=== PATIENT | female | born 1985 | race Caucasian/White ===

== ENCOUNTER 2021-01-06 08:28 | Emergency (ER) | payer BC, SELFPAY ==
--- NOTE | ~2021-01-06 | CT_ITS ---
EXAMINATION: CT ABDOMEN AND PELVIS WITH CONTRAST CLINICAL INFORMATION: Abdominal pain at site of umbilical hernia. COMPARISON: Prior abdomen CT from 09/04/2019. TECHNIQUE: Multidetector volumetric images were obtained from the superior aspect of the liver through the pubic symphysis following administration 100 mL of Omnipaque 350 intravenous contrast. Sagittal and coronal reformatted images were obtained on the technologist's workstation. This CT examination was performed using dose optimization techniques as appropriate, variously including the following: *Automated exposure control *Adjustment of mA and/or kV according to patient size (this includes techniques or standardized protocols for targeted exams where dose is matched to indication/reason for exam; i.e. extremities or head) *Use of iterative reconstruction technique DLP: 794 mGy-cm FINDINGS: LOCALIZER IMAGES: Large body habitus. Cholecystectomy clips in the right upper quadrant and IUD in the pelvis. LUNG BASES: Small noncalcified nodules in left lower lobe are unchanged compared to 09/04/2019, consistent with benign nodules. No pulmonary consolidation or pleural effusion at either lung base. LIVER: Chronic hepatomegaly and diffuse hepatic steatosis without focal liver lesion. GALLBLADDER AND BILIARY TREE: Gallbladder is surgically absent.. No intrahepatic or extrahepatic bile duct dilatation. PANCREAS: Normal. No evidence of edema, pancreatic ductal dilatation or mass. SPLEEN: Mildly enlarged spleen measures up to 13.5 cm maximum dimension. ADRENAL GLANDS: Normal. KIDNEYS AND URETERS: The kidneys have normal size and cortical thickness. Small calyceal stone in the left upper pole measures up to 0.3 cm. No renal mass, hydroureteronephrosis or perinephric edema. The ureters are unremarkable. BLADDER: Normal. No calculi or wall thickening. BOWEL AND PERITONEUM: Stomach is unremarkable. No dilated loops of bowel. The appendix is normal. No overt bowel wall thickening or mesenteric fat stranding. No ascites or pneumoperitoneum. ABDOMINAL WALL: The fat-containing hernia located just superior to the umbilicus has a 1.1 cm wide neck. The hernia sac measures approximately 2.8 x 2.3 x 3 cm (2.2 x 2 x 3 cm on 09/04/2019). No herniation of bowel into the umbilical region. Minimal haziness of fat around the hernia sac. No abdominal wall fluid collection. VASCULATURE: Abdominal aorta is normal in caliber and its branches are widely patent. Inferior vena cava is normal. LYMPH NODES: No pathologic sized lymph nodes in the abdomen or pelvis. No inguinal lymphadenopathy. PELVIC VISCERA: Contraceptive device is appropriately positioned within the endometrium. No uterine or adnexal mass. No pelvic free fluid. SKELETAL: Unremarkable. CT/CT abdomen pelvis w con IMPRESSION: * Minimal haziness/inflammation of fat at site of the incarcerated, fat-containing periumbilical hernia. No abdominal wall abscess. There is no herniation of bowel into the abdominal wall. * Chronic hepatomegaly and diffuse hepatic steatosis. * Small stone in the upper pole of the left kidney. No hydronephrosis.
--- NOTE | 2021-01-06 08:59 | ED_ITS ---
HPI - Abdominal Pain General Chief Complaint: Abdominal Pain Stated Complaint: hernia on belly button Time Seen by Provider: 01/06/21 08:36 Source: patient Mode of arrival: ambulatory Limitations: no limitations History of Present Illness HPI narrative: has known umbilical hernia for months, loose stool + flatus, st opped drinking 5 nips of ETOH about a weeks ago drinks due to anxiety MD elicited complaint: abdominal pain Onset (ago): month(s) (but worse in last day) Pain Consistency: constant Location: periumbilical Severity: moderate Quality: cramping Radiation: none Migration to: no migration Exacerbating factors: vomiting and movement Relieving factors: nothing Associated symptoms: nausea and vomiting Related Data Previous Rx's Medication Instructions Recorded chlordiazepoxide HCl See Rx Instructions .ROUTE 01/06/21 .COMPLEX PRN #30 cap famotidine [Pepcid] 20 mg PO DAILY PRN #30 tab 01/06/21 ondansetron 4 mg PO Q8H PRN #20 tab 01/06/21 Allergies Allergy/AdvReac Type Severity Reaction Status Date / Time No Known Allergies Allergy Unknown Unverified 04/05/20 16:16 Environmental Allergy Unknown Uncoded 06/19/15 00:00 Review of Systems Review of Systems Constitutional : No Weight loss, No Fever, No Chills ENT/Mouth : No sore throat, No Rhinorrhea Eyes: No Swelling, No Redness Cardiovascular : No Chest Pain, No SOB, NoEdema Respiratory : No Cough, No Sputum, No Wheezing Gastrointestinal : Positive Nausea, Positive Vomiting, no Diarrhea, positive abdominal Pain, No Hematochezia, No Melena Genitourinary : No Dysuria, No Urinary Frequency, No Hematuria, No Urgency Musculoskeletal : No joint pain, No Myalgias, No Joint Swelling Skin : No Skin Lesions, No rash Neuro : No Weakness, No Numbness, No Dizziness, No Headache Psych : No Anxiety/Panic, No Depression Heme/Lymph: No Bruising, No Lymphadenopathy Endocrine : No Polyuria, No Polydipsia All other systems reviewed and are negative. Physical Exam Vital Signs: Vital Signs: Last Vital Signs Temp 98.8 F 01/06/21 10:00 Pulse 113 H 01/06/21 10:00 Resp 20 01/06/21 10:00 BP 145/85 H 01/06/21 10:00 Pulse Ox 98 01/06/21 10:00 Body Mass Index 31.2 Appearance: Alert. Oriented X3. No acute distress. Anxious Eyes: Pupils equal, round and reactive to light. ENT: Pharynx normal. Neck: Normal inspection. Neck supple. CVS: Normal heart rate and rhythm. Pulses normal. Respiratory: No respiratory distress. Breath sounds normal. Abdomen: Soft and enlarged abdomen, no ascites, ?hepatomegaly, soft reducible hernia Skin: Skin warm and dry. Normal skin color. Normal skin turgor. Extremities: No lower extremity edema. No calf ttp Neuro: Oriented X 3. No motor deficit. No sensory deficit. Course Course Course Narrative: herniated fat not bowel in umbilical hernia it has been there x 1 year no severe pain, no ttp no discoloration, at this time suspect this is combination of fat necrosis and ETOH abuse will send home with medications and referral to surgery Dr. Whaley aware can follow up as outpatient MDM - Abdominal Pain MDM Narrative Medical decision making narrative: 35 yo female s/p lap ari several years ago comes in with abdominal pain n/v did have stool today and flatus has umbilical hernia that is reduceable for months I suspect that her n/v and symptoms might be related to her ETOH abuse, given her symptoms will obtain labs, IVF, IV Toradol/zofran and PO librium, CT scan for obstruction and will be able to evaluate her liver as well, dispo per results and findings. Lab Data Result diagrams: 01/06/21 09:55 01/06/21 09:55 Labs: Lab Results 01/06/21 01/06/21 01/06/21 Range/Units 09:55 09:55 09:55 WBC 10.1 (4.8-10.8) X10*3/uL RBC 2.93 L (4.20-5.50) X10*6/uL Hgb 11.5 L (12.0-16.0) g/dl Hct 34.2 L (37-47) % MCV 116.7 H (80-98) fL MCH 39.2 H (27.0-33.0) pg MCHC 33.6 (31.0-35.0) g/dl RDW 13.7 (11.0-16.0) % Plt Count 289 (160-400) X10*3/uL MPV 9.3 L (9.4-12.3) fL Immature Gran % (Auto) 0.6 H (0.0-0.4) % Neut % (Auto) 82.9 H (45-73) % Lymph % (Auto) 10.4 L (20-40) % [place] % (Auto) 5.3 (2-11) % Eos % (Auto) 0.5 (0-4) % Baso % (Auto) 0.3 (0-2) % Lymph # (Auto) 1.1 L (1.2-4.9) X10*3/uL [place] # (Auto) 0.5 (0.1-1.2) X10*3/uL Eos # (Auto) 0.1 (0.0-0.4) X10*3/uL Baso # (Auto) 0.0 (0.0-0.2) X10*3/uL Abs Immat Gran (auto) 0.06 H (0.00-0.03) X10*3/uL Absolute Neuts (auto) 8.4 H (2.0-8.3) X10*3/uL Absolute Nucleated RBC 0.000 (0.0-0.012) X10*3/uL Nucleated RBC % (auto) 0.0 (0.0-0.2) /100WBC Hold Blue Top SEE NOTE Sodium 141 (135-145) mmol/L Potassium 3.9 (3.3-5.1) mmol/L Chloride 102 (96-108) mmol/L Carbon Dioxide 26 (22-29) mmol/L Anion Gap 17 (12-20) BUN 6 L (9-16) mg/dL Creatinine 0.61 (0.5-1.4) mg/dL Estim Creat Clear Calc 136.1 Estimated GFR > 60 Random Glucose 125 H (60-115) mg/dL Calcium 9.4 (8.4-10.2) mg/dL Magnesium 2.0 (1.6-2.6) mg/dL Total Bilirubin 2.2 H (0.0-1.0) mg/dL Direct Bilirubin 1.2 H (0.0-0.5) mg/dL AST 208 H (5-31) U/L ALT 97 H (0-31) U/L Alkaline Phosphatase 204 H (39-117) U/L Total Protein 7.3 (6.5-8.0) g/dL Albumin 3.8 (3.5-5.0) g/dL Lipase 40 (8-78) U/L Urine Color Urine Appearance Urine pH (5.0-8.0) Ur Specific [place] (1.005-1.025) Urine Protein (NEG-TRACE) MG/DL Urine Glucose (UA) (NEG) MG/DL Urine Ketones (NEG) MG/DL Urine Blood (NEG) Urine Nitrite (NEG) Ur Leukocyte Esterase (NEG) Urine RBC (0) /HPF Urine WBC (0-4) /HPF Ur Squamous Epith Cells /LPF Calcium Oxalate Crystal /LPF Urine Bacteria /LPF Urine Mucus /LPF Urine Test (NEGATIVE) 01/06/21 01/06/21 Range/Units 11:35 11:35 WBC (4.8-10.8) X10*3/uL RBC (4.20-5.50) X10*6/uL Hgb (12.0-16.0) g/dl Hct (37-47) % MCV (80-98) fL MCH (27.0-33.0) pg MCHC (31.0-35.0) g/dl RDW (11.0-16.0) % Plt Count (160-400) X10*3/uL MPV (9.4-12.3) fL Immature Gran % (Auto) (0.0-0.4) % Neut % (Auto) (45-73) % Lymph % (Auto) (20-40) % [place] % (Auto) (2-11) % Eos % (Auto) (0-4) % Baso % (Auto) (0-2) % Lymph # (Auto) (1.2-4.9) X10*3/uL [place] # (Auto) (0.1-1.2) X10*3/uL Eos # (Auto) (0.0-0.4) X10*3/uL Baso # (Auto) (0.0-0.2) X10*3/uL Abs Immat Gran (auto) (0.00-0.03) X10*3/uL Absolute Neuts (auto) (2.0-8.3) X10*3/uL Absolute Nucleated RBC (0.0-0.012) X10*3/uL Nucleated RBC % (auto) (0.0-0.2) /100WBC Hold Blue Top Sodium (135-145) mmol/L Potassium (3.3-5.1) mmol/L Chloride (96-108) mmol/L Carbon Dioxide (22-29) mmol/L Anion Gap (12-20) BUN (9-16) mg/dL Creatinine (0.5-1.4) mg/dL Estim Creat Clear Calc Estimated GFR Random Glucose (60-115) mg/dL Calcium (8.4-10.2) mg/dL Magnesium (1.6-2.6) mg/dL Total Bilirubin (0.0-1.0) mg/dL Direct Bilirubin (0.0-0.5) mg/dL AST (5-31) U/L ALT (0-31) U/L Alkaline Phosphatase (39-117) U/L Total Protein (6.5-8.0) g/dL Albumin (3.5-5.0) g/dL Lipase (8-78) U/L Urine Color YELLOW Urine Appearance CLEAR Urine pH 6.0 (5.0-8.0) Ur Specific [place] <= 1.005 (1.005-1.025) Urine Protein NEG (NEG-TRACE) MG/DL Urine Glucose (UA) NEG (NEG) MG/DL Urine Ketones NEG (NEG) MG/DL Urine Blood TRACE (NEG) Urine Nitrite NEG (NEG) Ur Leukocyte Esterase NEG (NEG) Urine RBC 0-2 (0) /HPF Urine WBC 0 (0-4) /HPF Ur Squamous Epith Cells TRACE /LPF Calcium Oxalate Crystal TRACE /LPF Urine Bacteria NONE /LPF Urine Mucus TRACE /LPF Urine Test NEGATIVE (NEGATIVE) Discharge Plan Discharge Clinical Impression: Abnormal LFTs (liver function tests), Alcohol abuse Hernia, umbilical Qualifiers: Obstruction and gangrene presence: without obstruction or gangrene Qualified Code(s): K42.9 - Umbilical hernia without obstruction or gangrene Patient Disposition: Home, Self-Care Instructions: Umbilical Hernia (ED), Abuse of Alcohol (ED) Additional Instructions: return to ED for any worsening symptoms or concerns FOLLOW UP WITH SURGERY CT SCAN RESULTS * Minimal haziness/inflammation of fat at site of the incarcerated, fat-containing periumbilical hernia. No abdominal wall abscess. There is no herniation of bowel into the abdominal wall. * Chronic hepatomegaly and diffuse hepatic steatosis. * Small stone in the upper pole of the left kidney. No hydronephrosis. Prescriptions: New famotidine [Pepcid] 20 mg tablet 20 mg PO DAILY PRN (Reason: abdominal discomfort) Qty: 30 RF: 0 chlordiazepoxide HCl 25 mg capsule See Rx Instructions .ROUTE .COMPLEX PRN (Reason: alcohol withdrawal) Qty: 30 RF: 0 ondansetron 4 mg tablet,disintegrating 4 mg PO Q8H PRN (Reason: nausea and vomiting) Qty: 20 RF: 0 Referrals: Jose Whaley MD [Physician] - 2 days Stand Alone Forms: Work/School Release FOR[facility]LY [facility] Past Medical History Attestation statement: The following information was validated with the patient. Medical History (Updated 01/06/21 @ 12:44 by Zina Theodore DO) No active medical problems Seasonal allergies Surgical History (Updated 01/06/21 @ 09:16 by Liliya Martins) H/O LEEP S/P laparoscopic cholecystectomy Social History Social History (Updated 01/06/21 @ 09:11 by Zina Theodore DO) Alcohol intake: current Alcohol intake frequency: 3 or more drinks per day Alcohol type: hard liquor Patient Tobacco Use Status: Never used Tobacco Use of substances other than those prescribed or required for medical reasons: No Advance Directives: Yes Advance Directives Information Provided: Yes Advance Directives on File: No Patient : No
[2021-01-06 09:12] VITALS: BP 158/92; PULSE 125; RESP 18; TEMP 37.1; O2SAT 100; BMI 31.2
[2021-01-06] MEDS: chlordiazePOXIDE HCl 25 MG CAPSULE PO (09:42)
[2021-01-06] MEDS: ondansetron HCL 4 MG/2 ML VIAL IVPUSH (09:55)
[2021-01-06] MEDS: Ketorolac Tromethamine 30 MG/ML VIAL IVPUSH (09:56)
[2021-01-06 10:00] VITALS: BP 145/85; PULSE 113; RESP 20; TEMP 37.1; O2SAT 98
[2021-01-06] MEDS: 0.9 % Sodium Chloride 1,000 ML 999 ML IVCONT (10:04)
[2021-01-06 10:05] LABS: MANUAL DIFF FLAG NO
[2021-01-06 10:06] LABS: Basophils Percent Auto 0.3 % (0-2); Eosinophils Absolute Auto 0.1 X10*3/uL (0.0-0.4); Eosinophils Percent Auto 0.5 % (0-4); Hematocrit 34.2 % (37-47); Hemoglobin 11.5 g/dl (12.0-16.0); Imm Gran Abs Auto 0.06 X10*3/uL (0.00-0.03); Imm Gran Pct Auto 0.6 % (0.0-0.4); Lymphocytes Absolute Auto 1.1 X10*3/uL (1.2-4.9); Lymphocytes Percent Auto 10.4 % (20-40); Mean Corpuscular HGB Conc 33.6 g/dl (31.0-35.0); Mean Corpuscular Hemoglobin 39.2 pg (27.0-33.0); Mean Platelet Volume 9.3 fL (9.4-12.3); Monocytes Absolute Auto 0.5 X10*3/uL (0.1-1.2); Monocytes Percent Auto 5.3 % (2-11); Neutrophils Absolute Auto 8.4 X10*3/uL (2.0-8.3); Neutrophils Percent Auto 82.9 % (45-73); Platelet Count 289 X10*3/uL (160-400); Red Blood Count 2.93 X10*6/uL (4.20-5.50); Red Cell Distribution Width 13.7 % (11.0-16.0); White Blood Count 10.1 X10*3/uL (4.8-10.8)
[2021-01-06 10:07] LABS: Mean Corpuscular Volume 116.7 fL (80-98)
--- NOTE | 2021-01-06 10:16 | PC.NURSE ---
Pt alert oriented, LSCTA, BS active. Pt reports abd pain with movement. She reports having developed a hernia approximately 1yr ago. The pt is tearful and anxious stating she just wants to find out why she is have the pain. Verbal reassurance given. Pt appears in no distress at this time. IV established, labs obtained, fluids hung, meds given as documented. Pt awaiting CT scan.
[2021-01-06 10:41] LABS: Alanine Aminotransferase 97 U/L (0-31); Albumin Level 3.8 g/dL (3.5-5.0); Alkaline Phosphatase 204 U/L (39-117); Anion Gap 17 (12-20); Aspartate Amino Transferase 208 U/L (5-31); Bilirubin Direct 1.2 mg/dL (0.0-0.5); Bilirubin Total 2.2 mg/dL (0.0-1.0); Blood Urea Nitrogen 6 mg/dL (9-16); Calcium 9.4 mg/dL (8.4-10.2); Carbon Dioxide 26 mmol/L (22-29); Chloride 102 mmol/L (96-108); Creatinine Clr Calc Pharmacy 136.1; Estimated Glomerular Filt Rate > 60; Glucose Random 125 mg/dL (60-115); Lipase 40 U/L (8-78); Potassium 3.9 mmol/L (3.3-5.1); Sodium 141 mmol/L (135-145); Total Protein 7.3 g/dL (6.5-8.0)
[2021-01-06 11:43] LABS: Glucose Urine UA NEG (NEG); Leukocyte Esterase Urine NEG (NEG); Nitrite Urine NEG (NEG); Specific Gravity - Urine <= 1.005 (1.005-1.025); Urine Blood TRACE (NEG); Urine Ketones NEG (NEG); Urine Protein NEG (NEG-TRACE)
[2021-01-06 11:45] LABS: Appearance Urine CLEAR; Color Urine YELLOW; Urine Pregnancy NEGATIVE (NEGATIVE)
[2021-01-06 11:46] LABS: UPreg QC Valid YES
[2021-01-06 11:56] LABS: Calcium Oxalate Crystals Urine TRACE /LPF; Mucus Urine TRACE /LPF; RBC Urine 0-2 /HPF (0); Squamous Epithelial Cell Urine TRACE /LPF; WBC Urine 0 /HPF (0-4)
[2021-01-06] MEDS: iohexoL 350 MG/ML 100 ML INFUS..BTL IV (12:20)
[2021-01-06 13:24] VITALS: BP 130/84; PULSE 97; RESP 18; O2SAT 98
== END 2021-01-06 13:32 | disposition home or self-care (01) ==
PROVIDERS: Emergency Provider Emergency Medicine
DX: R79.89 Other specified abnormal findings of blood chemistry (principal); F10.10 Alcohol abuse, uncomplicated; K42.9 Umbilical hernia without obstruction or gangrene; Z90.49 Acquired absence of other specified parts of digestive tract
CPT/HCPCS: 36415; 74177; 80048; 80076; 81001; 81025; 83690; 83735; 85025; 96361; 96374; 96375; 99284; J1885; J2405; Q9967

== ENCOUNTER → 2021-01-07 10:48 | Outpatient (BNVA) | payer BC, SELFPAY | PROVIDERS: Visit Provider Surgery ==

== ENCOUNTER 2021-01-15 08:13 | Day surgery (SDC) | payer BC, SELFPAY ==
--- NOTE | 2021-01-14 11:10 | HO.ANESPROP2 ---
Documented by User: Courtney Renterianey 01/14/21 11:15 HPI - Anesthesia Eval Consult details Narrative: 35yo F for Hernia Repair Umbilical +ETOH (5 nips daily per ER note), LFTs elevated at ER - Repeat DOS and check INR Urine HCG negative in ER 01/06/21 PMFSH Active Problems Active Problems: All Active Problems (Updated 01/07/21 @ 11:13 by Fernando Gomes MD) Supraumbilical hernia (Acute) Past Medical History Medical History Abnormal LFTs (liver function tests) Alcohol abuse No active medical problems Seasonal allergies Supraumbilical hernia Family History Family History Other Bone cancer Non-Hodgkin lymphoma Skin cancer Surgical History Surgical History H/O LEEP S/P laparoscopic cholecystectomy Social History Social History Alcohol intake: current Alcohol intake frequency: 3 or more drinks per day Alcohol type: hard liquor Patient Tobacco Use Status: Never used Tobacco Use of substances other than those prescribed or required for medical reasons: No Have you been hit, kicked, punched, or otherwise hurt by someone within the past year? If so, by whom?: No Are you DNR?: No Advance Directives: No Advance Directives Information Provided: No Recently lost weight without trying: No Patient : No Meds Allergies Allergy/AdvReac Type Severity Reaction Status Date / Time No Known Allergies Allergy Unknown Verified 01/15/21 06:55 Environmental Allergy Mild Unknown Uncoded 01/15/21 06:55 Exam Exam Date and Time: January 14, 2021 1110 Pertinent Lab Results Pertinent Lab Results: Laboratory Tests 01/06/21 01/06/21 01/06/21 09:55 09:55 11:35 WBC 10.1 Hgb 11.5 L Hct 34.2 L Plt Count 289 Sodium 141 Potassium 3.9 Chloride 102 Carbon Dioxide 26 BUN 6 L Creatinine 0.61 Calcium 9.4 Magnesium 2.0 Total Bilirubin 2.2 H Direct Bilirubin 1.2 H AST 208 H ALT 97 H Alkaline Phosphatase 204 H Total Protein 7.3 Albumin 3.8 Lipase 40 Urine Test NEGATIVE Assessment and Plan Assessment Anesthesia Assessment: Chart Reviewed Documented by User: Fariba Hobbs 01/15/21 09:02 PMFSH Past Medical History Medical History Abnormal LFTs (liver function tests) Alcohol abuse No active medical problems Seasonal allergies Supraumbilical hernia Family History Family History Other Bone cancer Non-Hodgkin lymphoma Skin cancer Surgical History Surgical History H/O LEEP S/P laparoscopic cholecystectomy Social History Social History Alcohol intake: current Alcohol intake frequency: 3 or more drinks per day Alcohol type: hard liquor Patient Tobacco Use Status: Never used Tobacco Use of substances other than those prescribed or required for medical reasons: No Have you been hit, kicked, punched, or otherwise hurt by someone within the past year? If so, by whom?: No Are you DNR?: No Advance Directives: No Advance Directives Information Provided: No Recently lost weight without trying: No Patient : No Meds Allergies Allergy/AdvReac Type Severity Reaction Status Date / Time No Known Allergies Allergy Unknown Verified 01/15/21 06:55 Environmental Allergy Mild Unknown Uncoded 01/15/21 06:55 Exam Airway Mallampati Class: II TM Dist: >3cm Neck ROM: Full Assessment and Plan Assessment Anesthesia Assessment: Anesthesia Plan Discussed and Chart Reviewed Final Anesthetic Review NPO: Yes ASA Class: II Final Preanesthetic Review: No Changes in Pt Med Stat, Meds/Allgs Chart Reviewed, Consent Obtained/Reviewed and Anes Risks/Benef Reviewed Patient Risk: Low Procedure Risk: Low Assessment/Block/Sedation in SS: Assess/Block/Sedation-SS Anesthetic Plan Anesthetic Plan: GA Disposition: Standard PACU
[2021-01-15] VITALS (11 sets, daily range): BP systolic 109–132; BP diastolic 72–85; PULSE 91–110; RESP 16–18; TEMP 36.2–37.1; O2SAT 92–98; BMI 31.6
--- NOTE | 2021-01-15 08:09 | PC.NURSE ---
PER ANESTHESIA DR BATRES NO NEW LABS NEEDED ONLY URINE FOR PREGNACY
--- NOTE | 2021-01-15 08:10 | MHC.SHP ---
Pre-Procedural Eval Section A Date of Service: 01/15/21 Section B Chief Complaint: Supraumbilical hernia Allergies: Allergies Allergy/AdvReac Type Severity Reaction Status Date / Time No Known Allergies Allergy Unknown Verified 01/15/21 06:55 Environmental Allergy Mild Unknown Uncoded 01/15/21 06:55 Plan I have reviewed the history and physical and performed a pertinent physical examination on my patient. No changes have occurred unless specified.
[2021-01-15 08:30] LABS: UPreg QC Valid YES; Urine Pregnancy NEGATIVE (NEGATIVE)
[2021-01-15] MEDS: Lactated Ringers 1,000 ML 100 ML IVCONT (08:32)
--- NOTE | 2021-01-15 09:29 | W.PM.OPN ---
Operative Note Operative Note Date of Service: 01/15/21 Narrative: Preop diagnosis: supraumbilical hernia Postop diagnosis: Supraumbilical hernia Procedure: Repair of supraumbilical hernia with Ventralex mesh Surgeon: Fernando Gomes MD No emergency room physician assistant The patient is a 35 year female referred to me because of a supraumbilical hernia. She had a palpable mass, reducible, more pronounced with Valsalva maneuvers on the area above the umbilicus. Review of her CT scan showed a supra umbilical hernia containing fat. She understood the technique of repair with mesh. She was aware of the risks, benefits, and alternatives . She was brought to the operating room and placed supine Onthe table under general anesthesia via laryngeal mask airway. The abdomen was prepped and draped in the usual sterile fashion. A surgical time-out was done. The patient received cefazolin 2 g IV preoperatively. I made a short supraumbilical incision longitudinally using a blade 15. This wascarried down through the full-thickness of skin and subcutaneous fat using electrocautery. I continue to dissect down the subcutaneous layer until I was able to visualize hernia. I sharply dissected the hernia with the sac using Metzenbaum scissors and electrocautery off of the rest of subcutaneous layer until was able to clearly define the fascia. I divided the fibrous attachments of the sac to the fascial edge with electrocautery and Metzenbaum scissors. This was done circumferentially until was able to completely reduce the hernia through the defect. The hernia contained omental Fat without bowel loops..The defect measured about 1.3 cm in diameter. I therefore chose a small-sized Ventralex mesh. I positioned this mesh flat under the fascial defect and secured this to the fascial edge with Prolene to sutures using the Prolene straps. Both Prolene straps were then trimmed. I closed the fascia with [id number] Maxon 1 stitch. I recreated. I then reapposed the subcutaneous layer with Dexon 3-0 interrupted sutures. Skin closure was achieved with Dexon 4-0 subcuticular running stitch. The area was infiltrated with Marcaine 0.5% for postop analgesia. Steri-Strips and dressings were applied. The procedure was then completed The patient tolerated procedure well. There were no complications noted. Initial and final counts of sponges and instruments were correct. Estimated blood loss was about 2 cc . The patient was then extubated without difficulty and transferred to the recovery room with stable vital signs.
[2021-01-15] MEDS: Acetaminophen 325 MG TABLET 650 MG PO (09:54)
[2021-01-15] MEDS: oxyCODONE HCl Immed Release 5 MG TABLET PO (09:55)
[2021-01-15] MEDS: fentaNYL citrate/PF 100 MCG/2 ML VIAL 50 MCG IVPUSH (10:18)
== END 2021-01-15 11:17 | disposition home or self-care (01) ==
LOC: HO.SSS 08:15
PROVIDERS: Anesthesiology; Visit Provider Surgery
PROC: (CPT 49560; principal; 2021-01-15 10:10)
DX: K43.9 Ventral hernia without obstruction or gangrene (principal); F10.10 Alcohol abuse, uncomplicated; R74.8 Abnormal levels of other serum enzymes; J30.2 Other seasonal allergic rhinitis; Z79.899 Other long term (current) drug therapy; Z90.49 Acquired absence of other specified parts of digestive tract
CPT/HCPCS: 49560; 81025; C1781; J0690; J1100; J1885; J2250; J2405; J3010

== ENCOUNTER → 2021-01-31 10:49 | Outpatient (BNVA) | payer BC, SELFPAY | PROVIDERS: PCP Internal Medicine; Visit Provider Surgery ==

== ENCOUNTER → 2022-03-07 10:30 | Outpatient (BNVA) | payer SELFPAY | PROVIDERS: PCP Internal Medicine; Visit Provider Internal Medicine | DX: R76.11 Nonspecific reaction to tuberculin skin test without active tuberculosis (principal) ==

== ENCOUNTER 2022-08-13 00:40 | Emergency (ER) | payer BC, SELFPAY ==
[2022-08-13 00:48] VITALS: BP 154/89; PULSE 127; RESP 20; TEMP 36.7; O2SAT 98; BMI 28.3
[2022-08-13 01:09] LABS: MANUAL DIFF FLAG NO
[2022-08-13 01:12] LABS: Basophils Percent Auto 0.4 % (0-2); Eosinophils Absolute Auto 0.3 X10*3/uL (0.0-0.4); Eosinophils Percent Auto 2.9 % (0-4); Hematocrit 35.5 % (37.0-47.0); Hemoglobin 11.6 g/dl (12.0-16.0); Imm Gran Abs Auto 0.04 X10*3/uL (0.00-0.03); Imm Gran Pct Auto 0.4 % (0.0-0.4); Lymphocytes Absolute Auto 1.7 X10*3/uL (1.2-4.9); Lymphocytes Percent Auto 18.8 % (20-40); Mean Corpuscular HGB Conc 32.7 g/dl (31.0-35.0); Mean Corpuscular Hemoglobin 35.5 pg (27.0-33.0); Mean Corpuscular Volume 108.6 fL (80.0-98.0); Mean Platelet Volume 9.9 fL (9.4-12.3); Monocytes Absolute Auto 0.6 X10*3/uL (0.1-1.2); Monocytes Percent Auto 6.3 % (2-11); Neutrophils Absolute Auto 6.5 x10*3/uL (2.0-8.3); Neutrophils Percent Auto 71.2 % (45-73); Platelet Count 202 X10*3/uL (160-400); Red Blood Count 3.27 X10*6/uL (4.20-5.50); Red Cell Distribution Width 14.6 % (11.0-16.0); White Blood Count 9.1 X10*3/uL (4.8-10.8)
[2022-08-13 01:31] LABS: Anion Gap 14 (12-20); Blood Urea Nitrogen 8 mg/dL (9-16); Calcium 9.4 mg/dL (8.4-10.2); Carbon Dioxide 26 mmol/L (22-29); Chloride 107 mmol/L (96-108); Creatinine Clr Calc Pharmacy 119.9; Estimated Glomerular Filt Rate > 60; Glucose Random 129 mg/dL (60-115); Lipase 44 U/L (8-78); Potassium 3.4 mmol/L (3.3-5.1); Sodium 144 mmol/L (135-145)
[2022-08-13 01:50] LABS: Influenza A PCR NEGATIVE (Negative); Influenza B PCR NEGATIVE (Negative); Resp Syncy Virus RNA Qual PCR NEGATIVE (Negative); SARS COV2 PCR INHOUSE NEGATIVE (Negative)
--- OUTSIDE RECORDS SUMMARY | 2022-08-13 02:25 | XMS_ITS | Continuity of Care Document ---
:1985 Author Organization [facility] Address [address] [place] [address]- Care Team Providers Name Role Phone Josey PIERRE, Judith Primary Care Physician [place] [facility] [place] [facility] [address], [place] [address] Attending Physician: Dong Britton DO
--- OUTSIDE RECORDS SUMMARY | 2022-08-13 02:25 | XMS_ITS | Continuity of Care Document ---
:1985 Author Organization [facility] Address [address] [place] [address]- Care Team Providers Name Role Phone Josey PIERRE, Judith Primary Care Physician [place] [facility] [place]21 [facility] [address] [place] [address]- Attending Physician: Joselin Fernandez Admitting Physician: Joselin Fernandez Referring Physician: Joselin Fernandez
[2022-08-13 02:51] VITALS: BP 160/99; PULSE 104; RESP 17; TEMP 36.8; O2SAT 96
[2022-08-13 03:36] LABS: Appearance Urine Cloudy; Color Urine Dark Yellow; Glucose Urine UA Negative (Negative); Leukocyte Esterase Urine Trace (Negative); Nitrite Urine Negative (Negative); UMIC TRIGGER UACC YES; Urine Blood Negative (Negative); Urine Ketones Trace mg/dL (Negative); Urine Protein Trace mg/dL (Neg-Trace)
[2022-08-13 03:38] LABS: UPreg QC Valid YES; Urine Pregnancy NEGATIVE (NEGATIVE)
--- NOTE | 2022-08-13 03:45 | ED.ABDPAIN ---
HPI - Abdominal Pain General Chief Complaint: Abdominal Pain Stated Complaint: Abd pain Time Seen by Provider: 08/13/22 03:45 Source: patient Mode of arrival: ambulatory Limitations: no limitations History of Present Illness HPI narrative: Patient is status post cholecystectomy comes in for abdominal bloating for last 4 months also complaining of tingling sensation in hands and feet for last few days patient drinks alcohol almost every day also feels constipated no fever no chills no vomiting or diarrhea Related Data Previous Rx's Medication Instructions Recorded dicyclomine 20 mg tablet 20 mg PO QID PRN abdominal pain 08/13/22 #20 tabs folic acid 1 mg tablet 1 mg PO DAILY #90 tabs 08/13/22 thiamine HCl (vitamin B1) 50 mg 50 mg PO DAILY #90 tabs 08/13/22 tablet Allergies Allergy/AdvReac Type Severity Reaction Status Date / Time Environmental Allergy Mild Unknown Uncoded 09/30/21 09:35 Review of Systems Review of Systems Yes all other systems are reviewed and are negative PMFSH Past Medical History Medical History (Updated 08/13/22 @ 04:45 by Vishnu Liu MD) Abnormal LFTs (liver function tests) Alcohol abuse Elevated blood pressure reading without diagnosis of hypertension SERAFIN (generalized anxiety disorder) Macrocytic anemia Obese Seasonal allergies Supraumbilical hernia Surgical History H/O LEEP History of hernia surgery S/P laparoscopic cholecystectomy Family History Family History Family/Other Mental health disorder Father Osteomyelitis Anemia Myocardial infarction Mother Schizophrenia Brother Autistic disorder Other Bone cancer Non-Hodgkin lymphoma Skin cancer Social History Social History (Updated 09/30/21 @ 09:42 by Roxane Merritt MD) Housing: House Alcohol intake: current Alcohol intake frequency: a few times a week Alcohol type: wine Patient Tobacco Use Status: Former Tobacco user Tobacco use type: Cigarette Smoked in Last 30 Days: No e-Cigarette/Vaping Use: Never Used Second Hand Smoke Exposure: No Use of substances other than those prescribed or required for medical reasons: No Advance Directives: No Advance Directives Information Provided: Yes Patient : No service: No Current occupational status: employed Current occupational exposures/hazards: No Physical Exam ED Vital Signs: Vital Signs - 24 hr 08/13/22 00:48 08/13/22 02:51 Temperature 98.1 F 98.3 F Pulse Rate 127 H 104 H Respiratory Rate 20 17 Blood Pressure 154/89 H 160/99 H Pulse Oximetry 98 96 Oxygen Delivery Method Room Air Room Air BMI result Body Mass Index 28.3 Appearance: Alert. Oriented X3. No acute distress. Eyes: No pallor or icterus ENT: Pharynx normal. Oral Mucosa moist Neck: Normal inspection. Neck supple. CVS: Normal heart rate and rhythm. Pulses normal. Respiratory: No respiratory distress. Equal air entry bilateral, no wheezing/rales/rhonchi Abdomen: Soft diffuse tenderness no rebound tenderness or guarding. Bowel sounds are present, no mass palpable, no CVA tenderness Skin: Skin warm and dry. Normal skin color. Normal skin turgor. Extremities: No lower extremity edema. No calf tenderness Neuro: Oriented X 3. No motor deficit. No sensory deficit.No cerebellar signs , cranial nerves II-XII intact Medical Decision Making Medical Decision Making MDM Narrative: Patient likely with IBS with given dicyclomine. Labs are stable. Patient tingling sensation in the hands and feet likely from alcoholic peripheral neuropathy patient advised to stop drinking alcohol will give her thiamine and folic acid. Vitamin B12 and folic acid level was normal Lab Data [facility] Lab Attestation statement: I reviewed the patient's lab results. 08/13/22 01:01 08/13/22 01:01 Labs: Lab Results 08/13/22 08/13/22 08/13/22 Range/Units 01:01 01:01 01:01 WBC 9.1 (4.8-10.8) X10*3/uL RBC 3.27 L (4.20-5.50) X10*6/uL Hgb 11.6 L (12.0-16.0) g/dl Hct 35.5 L (37.0-47.0) % MCV 108.6 H (80.0-98.0) fL MCH 35.5 H (27.0-33.0) pg MCHC 32.7 (31.0-35.0) g/dl RDW 14.6 (11.0-16.0) % Plt Count 202 (160-400) X10*3/uL MPV 9.9 (9.4-12.3) fL Immature Gran % (Auto) 0.4 (0.0-0.4) % Neut % (Auto) 71.2 (45-73) % Lymph % (Auto) 18.8 L (20-40) % [place] % (Auto) 6.3 (2-11) % Eos % (Auto) 2.9 (0-4) % Baso % (Auto) 0.4 (0-2) % Lymph # (Auto) 1.7 (1.2-4.9) X10*3/uL [place] # (Auto) 0.6 (0.1-1.2) X10*3/uL Eos # (Auto) 0.3 (0.0-0.4) X10*3/uL Baso # (Auto) 0.0 (0.0-0.2) X10*3/uL Abs Immat Gran (auto) 0.04 H (0.00-0.03) X10*3/uL Absolute Neuts (auto) 6.5 (2.0-8.3) x10*3/uL Absolute Nucleated RBC 0.000 (0.0-0.012) X10*3/uL Nucleated RBC % (auto) 0.0 (0.0-0.2) /100WBC Sodium 144 (135-145) mmol/L Potassium 3.4 (3.3-5.1) mmol/L Chloride 107 (96-108) mmol/L Carbon Dioxide 26 (22-29) mmol/L Anion Gap 14 (12-20) BUN 8 L (9-16) mg/dL Creatinine 0.63 (0.5-1.4) mg/dL Estim Creat Clear Calc 119.9 Estimated GFR > 60 Random Glucose 129 H (60-115) mg/dL Calcium 9.4 (8.4-10.2) mg/dL Magnesium 1.8 (1.6-2.6) mg/dL Lipase 44 (8-78) U/L Vitamin B12 (200-900) pg/mL Folate (> or = 4.0) ng/mL Urine Color Urine Appearance Urine pH (5.0-9.0) Ur Specific [place] (1.005-1.025) Urine Protein (Neg-Trace) mg/dL Urine Glucose (UA) (Negative) mg/dL Urine Ketones (Negative) mg/dL Urine Blood (Negative) Urine Nitrite (Negative) Ur Leukocyte Esterase (Negative) Urine RBC (0-2) /HPF Urine WBC (0-5) /HPF Ur Squamous Epith Cells (0-2) /HPF Calcium Oxalate Crystal Urine Bacteria (None Seen) Hyaline Casts (0-2) /LPF Urine Test (NEGATIVE) Influenza Type A (PCR) NEGATIVE (Negative) Influenza Type B (PCR) NEGATIVE (Negative) RSV RNA Qual (PCR) NEGATIVE (Negative) SARS-CoV-2 RNA (RT-PCR) NEGATIVE (Negative) 08/13/22 08/13/22 08/13/22 Range/Units 01:01 02:57 02:57 WBC (4.8-10.8) X10*3/uL RBC (4.20-5.50) X10*6/uL Hgb (12.0-16.0) g/dl Hct (37.0-47.0) % MCV (80.0-98.0) fL MCH (27.0-33.0) pg MCHC (31.0-35.0) g/dl RDW (11.0-16.0) % Plt Count (160-400) X10*3/uL MPV (9.4-12.3) fL Immature Gran % (Auto) (0.0-0.4) % Neut % (Auto) (45-73) % Lymph % (Auto) (20-40) % [place] % (Auto) (2-11) % Eos % (Auto) (0-4) % Baso % (Auto) (0-2) % Lymph # (Auto) (1.2-4.9) X10*3/uL [place] # (Auto) (0.1-1.2) X10*3/uL Eos # (Auto) (0.0-0.4) X10*3/uL Baso # (Auto) (0.0-0.2) X10*3/uL Abs Immat Gran (auto) (0.00-0.03) X10*3/uL Absolute Neuts (auto) (2.0-8.3) x10*3/uL Absolute Nucleated RBC (0.0-0.012) X10*3/uL Nucleated RBC % (auto) (0.0-0.2) /100WBC Sodium (135-145) mmol/L Potassium (3.3-5.1) mmol/L Chloride (96-108) mmol/L Carbon Dioxide (22-29) mmol/L Anion Gap (12-20) BUN (9-16) mg/dL Creatinine (0.5-1.4) mg/dL Estim Creat Clear Calc Estimated GFR Random Glucose (60-115) mg/dL Calcium (8.4-10.2) mg/dL Magnesium (1.6-2.6) mg/dL Lipase (8-78) U/L Vitamin B12 624 (200-900) pg/mL Folate 5.2 (> or = 4.0) ng/mL Urine Color Dark Yellow Urine Appearance Cloudy Urine pH 6.0 (5.0-9.0) Ur Specific [place] 1.020 (1.005-1.025) Urine Protein Trace (Neg-Trace) mg/dL Urine Glucose (UA) Negative (Negative) mg/dL Urine Ketones Trace (Negative) mg/dL Urine Blood Negative (Negative) Urine Nitrite Negative (Negative) Ur Leukocyte Esterase Trace H (Negative) Urine RBC 3-5 H (0-2) /HPF Urine WBC 0-5 (0-5) /HPF Ur Squamous Epith Cells 0-2 (0-2) /HPF Calcium Oxalate Crystal Present Urine Bacteria None Seen (None Seen) Hyaline Casts 0-2 (0-2) /LPF Urine Test NEGATIVE (NEGATIVE) Influenza Type A (PCR) (Negative) Influenza Type B (PCR) (Negative) RSV RNA Qual (PCR) (Negative) SARS-CoV-2 RNA (RT-PCR) (Negative) Medications Administered Discontinued Medications Generic Name Dose Route Start Last Admin Trade Name Freq PRN Reason Stop Dose Admin Dicyclomine HCl 20 mg 08/13/22 03:51 08/13/22 04:17 Dicyclomine Hcl 10 Mg Capsule PO 08/13/22 03:52 20 mg ONCE ONE Administration Thiamine HCl 50 mg 08/13/22 03:51 08/13/22 04:17 Thiamine Hcl 100 Mg Tablet PO 08/13/22 03:52 50 mg ONCE ONE Administration Discharge Plan Discharge Clinical Impression: Alcoholic peripheral neuropathy, Irritable bowel syndrome Patient Disposition: Home, Self-Care Instructions: Irritable Bowel Syndrome (ED), Peripheral Neuropathy (ED) Additional Instructions: Take thiamine and folic acid daily Stop drinking alcohol Bentyl for abdominal cramping Follow with PCP Prescriptions: New dicyclomine 20 mg tablet 20 mg PO QID PRN (Reason: abdominal pain) Qty: 20 0RF thiamine HCl (vitamin B1) 50 mg tablet 50 mg PO DAILY Qty: 90 0RF folic acid 1 mg tablet 1 mg PO DAILY Qty: 90 0RF Stand Alone Forms: Work/School Release Interventions: ED Discharge Assessment Last Done: 08/13/22 05:03 Discharge Date/Time: 08/13/22 05:03
[2022-08-13 04:05] LABS: Magnesium 1.8 mg/dL (1.6-2.6)
[2022-08-13 04:07] LABS: Bacteria Urine None Seen (None Seen); Calcium Oxalate Crystals Urine Present; Hyaline Casts Urine 0-2 /LPF (0-2); Squamous Epithelial Cell Urine 0-2 /HPF (0-2); WBC Urine 0-5 /HPF (0-5)
[2022-08-13] MEDS: Thiamine HCL 100 MG TABLET 50 MG PO (04:17)
[2022-08-13] MEDS: Dicyclomine HCl 10 MG CAPSULE 20 MG PO (04:17)
--- NOTE | 2022-08-13 05:04 | PC.NURSE ---
discharge instructions given/explained, ambulates safely/independently, alert and oriented, all questions answered, no apparent distress
[2022-08-13 05:05] LABS: Folate 5.2 ng/mL (> or = 4.0); Vitamin B12 624 pg/mL (200-900)
== END 2022-08-13 05:03 | disposition home or self-care (01) ==
PROVIDERS: Emergency Provider Internal Medicine
DX: G62.1 Alcoholic polyneuropathy (principal); F10.188 Alcohol abuse with other alcohol-induced disorder; K58.9 Irritable bowel syndrome, unspecified; R10.9 Unspecified abdominal pain; Z20.822 Contact with and (suspected) exposure to COVID-19; Z20.828 Contact with and (suspected) exposure to other viral communicable diseases; Z87.891 Personal history of nicotine dependence
CPT/HCPCS: 0241U; 36415; 80048; 81001; 81025; 82607; 82746; 83690; 83735; 85025; 99283; 99284

== ENCOUNTER 2023-11-01 07:05 | Inpatient (IN) | payer MEDICAID, SELFPAY ==
[2023-11-01] VITALS (15 sets, daily range): BP systolic 116–142; BP diastolic 61–90; PULSE 84–116; RESP 16–20; TEMP 36–37.4; O2SAT 85–98; BMI 24.1
--- NOTE | ~2023-11-01 | CT_ITS ---
EXAMINATION: CT CHEST WITH CONTRAST CLINICAL INFORMATION: Hypoxia. Question aspiration. COMPARISON: Chest x-ray February 2019 TECHNIQUE: Multidetector volumetric CT imaging of the chest was obtained after the administration of 100 mL of Omnipaque 350 intravenous contrast without immediate adverse reactions. Axial MIP volume rendering provided. Sagittal and coronal reformatted images were obtained. This CT examination was performed using dose optimization techniques as appropriate, variously including the following: *Automated exposure control *Adjustment of mA and/or kV according to patient size (this includes techniques or standardized protocols for targeted exams where dose is matched to indication/reason for exam; i.e. extremities or head) *Use of iterative reconstruction technique DLP: 243 mGy-cm FINDINGS: LUNGS: Low lung volumes. Slightly elevated right hemidiaphragm. Atelectasis/consolidation in the right lower lobe. There is subsegmental atelectasis in the left lower lobe. Lungs otherwise clear. MEDIASTINUM: The mediastinum is normal. PLEURA: There is no pleural effusion. No pleural mass or thickening. AXILLA: No lymphadenopathy. UPPER ABDOMEN: See abdominal and pelvic CT report from the same day OSSEOUS STRUCTURES: Unremarkable. CT/CT chest w IV con IMPRESSION: Low lung volumes. Atelectasis/consolidation in the right lower lobe and subsegmental atelectasis in the left lower lobe. Fleischner guidelines were followed.
--- NOTE | ~2023-11-01 | CT_ITS ---
EXAMINATION: CT GI bleed abdomen and pelvis with and without IV contrast CLINICAL INFORMATION: Melanoma COMPARISON: Previous CT December 2020 TECHNIQUE: Axial images through the abdomen and pelvis with and without 100 mL Omnipaque 350 IV contrast. No oral contrast. Portal phase and delayed two-minute imaging postcontrast performed. This CT examination was performed using dose optimization techniques as appropriate, variously including the following: *Automated exposure control *Adjustment of mA and/or kV according to patient size (this includes techniques or standardized protocols for targeted exams where dose is matched to indication/reason for exam; i.e. extremities or head) *Use of iterative reconstruction technique DLP 204 9 mg/cm. FINDINGS: The liver is enlarged. The liver is markedly heterogeneous in attenuation. While this may represent heterogeneous fatty infiltration it is difficult to exclude a focal liver lesion. The gallbladder is been removed. There is no biliary duct dilatation. The portal and hepatic veins are patent. Normal pancreas. Enlarged spleen. Normal adrenal glands. Small cyst in the upper pole of the right kidney. No imaging follow-up recommended. Irregularly shaped stone versus 2 adjacent stones in the left UPJ region measuring 2 x 5 mm. There is no appreciable left hydronephrosis. Normal bladder. IUD in the uterus in satisfactory position. No adnexal mass seen. Large amount of ascites. Mild wall thickening of the proximal colon are suitable for colitis. This may be secondary to liver disease. The small bowel is normal. The stomach is contracted. There may be a fold thickening of the stomach. No evidence of active GI bleeding is seen. The appendix not definitely seen. There are small retroperitoneal lymph nodes. No enlarged lymph nodes. There are upper abdominal varices. The main and right left portal veins and splenic vein and hepatic veins are patent. The aorta is normal in caliber. No hernia. Review of bone windows is normal. CT/CT gi bleed abd pel wo/w IVcon IMPRESSION: No evidence of active GI bleeding seen. Colitis of the proximal colon. This may be secondary to liver disease. There also may be diffuse wall thickening of the stomach/gastritis. Enlarged very heterogeneous liver. While this may represent atypical appearing fatty infiltration, focal liver lesion cannot be excluded and further evaluation with liver MRI recommended. Splenomegaly, varices and large amount of ascites. 2 x 5 mm left UPJ stone. No significant hydronephrosis. Unremarkable examination.
--- NOTE | ~2023-11-01 | CT_ITS ---
EXAMINATION: CT HEAD WITHOUT CONTRAST CLINICAL INFORMATION: Facial weakness. COMPARISON: None available. TECHNIQUE: Contiguous axial imaging was performed from the skull base to vertex without intravenous administration of contrast. This CT examination was performed using dose optimization techniques as appropriate, variously including the following: *Automated exposure control *Adjustment of mA and/or kV according to patient size (this includes techniques or standardized protocols for targeted exams where dose is matched to indication/reason for exam; i.e. extremities or head) *Use of iterative reconstruction technique DLP: 550 mGy-cm FINDINGS: There is a mixed density extra-axial hemorrhage along the right frontal, parietal, and temporal convexities consistent with acute subdural hemorrhage. The hemorrhage measures up to 1.5 cm in thickness in the parietal region. There is mass effect on the underlying brain parenchyma. There is 0.6 cm of right to left midline shift. There is compression of the right lateral ventricle. No hydrocephalus. No evidence of acute infarction. The orbits are symmetric and within normal limits. The calvarium is intact. The mastoid air cells are clear. There is a mucosal retention cysts within the posterior aspect of the left maxillary sinus. Remaining paranasal sinuses are well aerated. CT/CT head/brain wo IV con IMPRESSION: There is a mixed (predominantly hyperdense) density extra-axial hemorrhage along the right frontal, parietal, and temporal convexities consistent with acute subdural hemorrhage. The hemorrhage measures up to 1.5 cm in thickness in the parietal region. There is mass effect on the underlying brain parenchyma. There is 0.6 cm of right to left midline shift. There is compression of the right lateral ventricle. No hydrocephalus. Findings were discussed with Dr Browning at 4:57 PM on 11/02/2023.
--- NOTE | 2023-11-01 07:13 | ECG_ITS ---
Test Reason : DETOX Blood Pressure : / mmHG Vent. Rate : 092 BPM Atrial Rate : 092 BPM P-R Int : 154 ms QRS Dur : 092 ms QT Int : 428 ms P-R-T Axes : 059 029 028 degrees QTc Int : 529 ms Normal sinus rhythm Nonspecific T wave changes Prolonged QT Abnormal ECG When compared with ECG of 20-FEB-2019 08:09, Nonspecific T wave abnormality, worse in Anterior leads QT has lengthened Referred By: Clare Martinez Electronically Signed By:Temo Boykin
[2023-11-01 07:40] LABS: MANUAL DIFF FLAG NO
[2023-11-01] MEDS: 0.9 % Sodium Chloride 1,000 ML 999 ML IV ×2 (07:48→09:07)
[2023-11-01] MEDS: Pantoprazole Sodium 40 MG/10 ML VIAL 80 MG IVPUSH (07:48)
[2023-11-01 07:49] LABS: OBS1 POSITIVE (NEGATIVE)
[2023-11-01 07:50] LABS: OBS Int Ctl Valid YES
[2023-11-01 07:53] LABS: INTERNATIONAL NORM RATIO 1.5 (0.9-1.1); Prothrombin Time 18.4 SEC (11.1-13.3)
--- NOTE | 2023-11-01 07:53 | ED_ITS ---
HPI - GI Bleed General Chief complaint: ETOH/Substance Use Stated complaint: WANTS DETOX Time Seen by Provider: 11/01/23 07:13 Source: patient Mode of arrival: ambulatory History of Present Illness HPI Narrative: 38-year-old female with known everyday alcohol drinker, denies any seizures when abstaining from alcohol comes in with multiple episodes of hematemesis as well as dark stools, last drink was 6-7 hours ago and has been on a recent 10 day Dias. Related Data Previous Rx's ?Medication ?Instructions ?Recorded dicyclomine 20 mg tablet 20 mg PO QID PRN abdominal pain 08/13/22 #20 tabs folic acid 1 mg tablet 1 mg PO DAILY #90 tabs 08/13/22 thiamine HCl (vitamin B1) 50 mg 50 mg PO DAILY #90 tabs 08/13/22 tablet Allergies Allergy/AdvReac Type Severity Reaction Status Date / Time chocolate AdvReac Hives Verified 11/01/23 07:20 Review of Systems 2 Review of Systems: Pertinent positives and negatives as stated in HPI PMFSH Past Medical History Medical History SERAFIN (generalized anxiety disorder) Elevated blood pressure reading without diagnosis of hypertension Macrocytic anemia Obese Supraumbilical hernia Alcohol abuse Abnormal LFTs (liver function tests) Seasonal allergies Surgical History History of hernia surgery H/O LEEP S/P laparoscopic cholecystectomy Family History Family History Family/Other Mental health disorder Father Osteomyelitis Anemia Myocardial infarction Mother Schizophrenia Brother Autistic disorder Other Bone cancer Non-Hodgkin lymphoma Skin cancer Social History Social History Housing: House Alcohol intake: current Alcohol intake frequency: a few times a week Alcohol type: hard liquor Patient Tobacco Use Status: Former Tobacco user Tobacco use type: Cigarette e-Cigarette/Vaping Use: Never Used Second Hand Smoke Exposure: No Advance Directives: No Advance Directives Information Provided: No service: No Current occupational status: employed Current occupational exposures/hazards: No Physical Exam 2 Vital Signs: Vital Signs: Last Vital Signs Temp 98.0 F 11/01/23 11:34 Pulse 84 11/01/23 11:34 Resp 20 11/01/23 11:34 BP 119/67 11/01/23 11:34 Pulse Ox 94 11/01/23 10:11 O2 Del Method Nasal Cannula 11/01/23 10:11 O2 Flow Rate 3 11/01/23 10:11 BMI result Body Mass Index 24.1 VITAL SIGNS: Reviewed. GENERAL: Well developed, well nourished, in no acute distress. HEAD: Normocephalic/atraumatic EYES: PERRLA, EOMI, scleral icterus, periorbital ecchymosis EARS: Ext canals without abnormality NOSE: Nares patent bilateral OROPHARYNX: no oral lesions noted, posterior pharynx clear NECK: Supple, no adenopathy LUNGS: Normal breath sounds. No adventitious sounds or accessory muscle use. SpO2<97> CARDIOVASCULAR: Regular rate and rhythm without noted murmurs ABDOMEN: Soft, non-tender, distended with bowel sounds. ANORECTAL: Varices palpated, melena, no bright red blood, good rectal tone MUSCULOSKELETAL: No tenderness, deformities, or effusions noted on gross inspection. EXTREMITIES: No cyanosis, clubbing or edema. SKIN: Inspection of the skin reveals no rashes,+jaundice NEUROLOGIC: Alert and oriented x 4. Strength and sensation to light touch were grossly intact x 4. Medications Administered Discontinued Medications Generic Name Dose Route Start Last Admin Trade Name Freq PRN Reason Stop Dose Admin Sodium Chloride 1,000 mls @ 999 mls/hr 11/01/23 07:45 11/01/23 09:09 Ns IV 11/01/23 08:45 Infused .Q1H1M HERMES Infusion Magnesium Sulfate 2 gm in 50 mls @ 150 mls/hr 11/01/23 07:48 11/01/23 08:32 Magnesium Sulfate/H2o IV 11/01/23 08:07 Infused ONCE ONE Infusion Sodium Chloride 100 mls @ 100 mls/hr 11/01/23 07:59 11/01/23 11:12 Ns IV 11/01/23 08:58 100 mls/hr ONCE ONE Administration Ceftriaxone Sodium 2 gm/ 50 mls @ 100 mls/hr 11/01/23 08:31 11/01/23 10:11 Sodium Chloride IV 11/01/23 09:00 Infused ONCE ONE Infusion Sodium Chloride 1,000 mls @ 999 mls/hr 11/01/23 09:00 11/01/23 10:11 Ns IV 11/01/23 10:00 Infused .Q1H1M HERMES Infusion Iohexol 100 ml 11/01/23 11:11 11/01/23 11:11 Iohexol 350 Mg/Ml 100 Ml Infus..Btl IV 11/01/23 11:12 100 ml ONCE ONE Administration Ondansetron HCl 4 mg 11/01/23 07:46 11/01/23 08:06 Ondansetron Hcl 4 Mg/2 Ml Vial IVPUSH 11/01/23 07:47 4 mg ONCE ONE Administration Pantoprazole Sodium 80 mg 11/01/23 07:34 11/01/23 07:48 Pantoprazole Sodium 40 Mg/10 Ml Vial IVPUSH 11/01/23 07:35 80 mg ONCE ONE Administration Phenobarbital Sodium 275 mg 11/01/23 08:00 11/01/23 08:30 Phenobarbital Sodium 130 Mg/Ml Im Once IM 11/01/23 08:01 275 mg ONCE ONE Administration Protocol Medical Decision Making Medical Decision Making [facility] Narrative: 0734: 38-year-old female with history and clinical presentation, DDX: Upper GI bleed, lower GI bleed, variceal bleed less likely, alcoholic hepatitis, abdominal ascites, pneumonia INTERVENTION: IV fluids, antibiotics, blood transfusion, antiemetics, 80 mg Protonix, 2 g of Rocephin, GI consult Reviewed all investigations and hematologic indices significant for leukocytosis with left shift, there is noted increase in anemia without thrombocytopenia. Coagulation studies are mildly deranged likely secondary to liver disease. Chemistry indices negative for CARMELITA or potassium derangement, EKG demonstrated prolonged QTC and patient received 2 g of magnesium sulfate. Grossly deranged liver enzymes, patient is afebrile and suspect that this is alcoholic hepatitis as opposed to choledocholithiasis. Guaiac is positive. ETOH-440 CT of the chest demonstrates findings suggestive of right lower lobe pneumonia. I discussed case with inpatient hospitalist who accepts admission. Differential Diagnosis Differential Diagnoses: The differential diagnosis associated with the presentation includes Please see the discussion above Admission/Observation Consideration of admission/observation: Escalation of care including admission/observation considered Please see the discussion above Consult Healthcare Provider Management of the patient was discussed with: Hospitalist and Agricultural Equipment Salesperson Please see the discussion above Lab Data MDM Lab Attestation statement: I reviewed the patient's lab results. Please see the discussion above 11/01/23 07:35 11/01/23 07:35 Labs: Lab Results 11/01/23 11/01/23 11/01/23 Range/Units 07:35 07:42 08:07 WBC 17.8 H (4.8-10.8) X10*3/uL RBC 3.26 L (4.20-5.50) X10*6/uL Hgb 8.6 L D (12.0-16.0) g/dl Hct 26.4 L D (37.0-47.0) % MCV 81.0 (80.0-98.0) fL MCH 26.4 L (27.0-33.0) pg MCHC 32.6 (31.0-35.0) g/dl RDW 23.3 H (11.0-16.0) % Plt Count 220 (160-400) X10*3/uL MPV 8.8 L (9.4-12.3) fL Immature Gran % (Auto) 1.0 H (0.0-0.4) % Neut % (Auto) 79.8 H (45-73) % Lymph % (Auto) 13.8 L (20-40) % [place] % (Auto) 3.9 (2-11) % Eos % (Auto) 1.0 (0-4) % Baso % (Auto) 0.5 (0-2) % Lymph # (Auto) 2.5 (1.2-4.9) X10*3/uL [place] # (Auto) 0.7 (0.1-1.2) X10*3/uL Eos # (Auto) 0.2 (0.0-0.4) X10*3/uL Baso # (Auto) 0.1 (0.0-0.2) X10*3/uL Abs Immat Gran (auto) 0.18 H (0.00-0.03) X10*3/uL Absolute Neuts (auto) 14.2 H (2.0-8.3) x10*3/uL Absolute Nucleated RBC 0.000 (0.0-0.012) X10*3/uL Nucleated RBC % (auto) 0.0 (0.0-0.2) /100WBC PT 18.4 H (11.1-13.3) SEC INR 1.5 H (0.9-1.1) Sodium 139 (135-145) mmol/L Potassium 3.5 (3.3-5.1) mmol/L Chloride 104 (96-108) mmol/L Carbon Dioxide 22 (22-29) mmol/L Anion Gap 17 (12-20) BUN 3 L (9-16) mg/dL Creatinine 0.50 (0.5-1.4) mg/dL Estim Creat Clear Calc 134.6 Estimated GFR > 60 Random Glucose 116 H (60-115) mg/dL Lactic Acid (0.5-2.0) mmol/L Lactic Acid F/U @ 2Hr (0.5-2.0) mmol/L Calcium 7.7 L D (8.4-10.2) mg/dL Total Bilirubin 11.7 H (0.0-1.0) mg/dL AST 217 H (5-31) U/L ALT 39 H (0-31) U/L Alkaline Phosphatase 240 H (39-117) U/L Ammonia 39 (13-55) umol/L Total Protein 7.3 (6.5-8.0) g/dL Albumin 3.0 L (3.5-5.0) g/dL Lipase 67 (8-78) U/L Beta HCG, Quant < 2 mIU/mL Stool Occult Blood POSITIVE (NEGATIVE) Ethyl Alcohol 440 H* mg/dL Blood Type AB Positive Antibody Screen NEGATIVE Crossmatch See Detail 11/01/23 11/01/23 Range/Units 08:27 11:19 WBC (4.8-10.8) X10*3/uL RBC (4.20-5.50) X10*6/uL Hgb (12.0-16.0) g/dl Hct (37.0-47.0) % MCV (80.0-98.0) fL MCH (27.0-33.0) pg MCHC (31.0-35.0) g/dl RDW (11.0-16.0) % Plt Count (160-400) X10*3/uL MPV (9.4-12.3) fL Immature Gran % (Auto) (0.0-0.4) % Neut % (Auto) (45-73) % Lymph % (Auto) (20-40) % [place] % (Auto) (2-11) % Eos % (Auto) (0-4) % Baso % (Auto) (0-2) % Lymph # (Auto) (1.2-4.9) X10*3/uL [place] # (Auto) (0.1-1.2) X10*3/uL Eos # (Auto) (0.0-0.4) X10*3/uL Baso # (Auto) (0.0-0.2) X10*3/uL Abs Immat Gran (auto) (0.00-0.03) X10*3/uL Absolute Neuts (auto) (2.0-8.3) x10*3/uL Absolute Nucleated RBC (0.0-0.012) X10*3/uL Nucleated RBC % (auto) (0.0-0.2) /100WBC PT (11.1-13.3) SEC INR (0.9-1.1) Sodium (135-145) mmol/L Potassium (3.3-5.1) mmol/L Chloride (96-108) mmol/L Carbon Dioxide (22-29) mmol/L Anion Gap (12-20) BUN (9-16) mg/dL Creatinine (0.5-1.4) mg/dL Estim Creat Clear Calc Estimated GFR Random Glucose (60-115) mg/dL Lactic Acid 2.4 H* (0.5-2.0) mmol/L Lactic Acid F/U @ 2Hr 1.8 (0.5-2.0) mmol/L Calcium (8.4-10.2) mg/dL Total Bilirubin (0.0-1.0) mg/dL AST (5-31) U/L ALT (0-31) U/L Alkaline Phosphatase (39-117) U/L Ammonia (13-55) umol/L Total Protein (6.5-8.0) g/dL Albumin (3.5-5.0) g/dL Lipase (8-78) U/L Beta HCG, Quant mIU/mL Stool Occult Blood (NEGATIVE) Ethyl Alcohol mg/dL Blood Type Antibody Screen Crossmatch Independent Interpretation I performed an independent interpretation of an: EKG Interpretation: Normal sinus rhythm, HR-92, no STEMI, ME/QRS are within normal limits and QTC is prolonged likely secondary to low magnesium and patient will be repleted with 2 g of magnesium sulfate. Radiology Impression Discussion of test interpretation with radiology: I have reviewed the radiologist's reading. Radiologist Impression: Please see the discussion above External Record Review External record reviewed: Outpatient record, Prior outpatient labs and Prior outpatient radiology Social Determinants Patient?s care significantly limited by Social Determinants of Health including: Alcoholism and drug addiction in family Critical Care Time Critical Care Time Critical Care Time: Yes Total Critical Care Time: 60 Attestation: I personally attest to this time spent taking care of the patient. Discharge Plan Discharge Clinical Impression: UGIB (upper gastrointestinal bleed), Hypomagnesemia, Alcohol use disorder, Acute alcoholic hepatitis, Pneumonia, Abdominal ascites Patient Disposition: Admitted As Inpatient Print Language: Algerian
[2023-11-01 07:56] LABS: Basophils Absolute Auto 0.1 X10*3/uL (0.0-0.2); Basophils Percent Auto 0.5 % (0-2); Eosinophils Absolute Auto 0.2 X10*3/uL (0.0-0.4); Hematocrit 26.4 % (37.0-47.0); Hemoglobin 8.6 g/dl (12.0-16.0); Imm Gran Abs Auto 0.18 X10*3/uL (0.00-0.03); Lymphocytes Absolute Auto 2.5 X10*3/uL (1.2-4.9); Lymphocytes Percent Auto 13.8 % (20-40); Mean Corpuscular HGB Conc 32.6 g/dl (31.0-35.0); Mean Corpuscular Hemoglobin 26.4 pg (27.0-33.0); Mean Platelet Volume 8.8 fL (9.4-12.3); Monocytes Absolute Auto 0.7 X10*3/uL (0.1-1.2); Monocytes Percent Auto 3.9 % (2-11); Neutrophils Absolute Auto 14.2 x10*3/uL (2.0-8.3); Neutrophils Percent Auto 79.8 % (45-73); Platelet Count 220 X10*3/uL (160-400); Red Blood Count 3.26 X10*6/uL (4.20-5.50); Red Cell Distribution Width 23.3 % (11.0-16.0); White Blood Count 17.8 X10*3/uL (4.8-10.8)
[2023-11-01 07:58] LABS: Ethanol 440 mg/dL
[2023-11-01] MEDS: Magnesium Sulfate/H2O 2 GM/50 ML PIGGYBACK IV (08:05)
[2023-11-01] MEDS: ondansetron HCL 4 MG/2 ML VIAL IVPUSH (08:06)
[2023-11-01 08:12] LABS: Alanine Aminotransferase 39 U/L (0-31); Alkaline Phosphatase 240 U/L (39-117); Anion Gap 17 (12-20); Aspartate Amino Transferase 217 U/L (5-31); Bilirubin Total 11.7 mg/dL (0.0-1.0); Blood Urea Nitrogen 3 mg/dL (9-16); Calcium 7.7 mg/dL (8.4-10.2); Carbon Dioxide 22 mmol/L (22-29); Chloride 104 mmol/L (96-108); Creatinine Clr Calc Pharmacy 134.6; Estimated Glomerular Filt Rate > 60; Glucose Random 116 mg/dL (60-115); HCG Quantitative < 2 mIU/mL; Lipase 67 U/L (8-78); Potassium 3.5 mmol/L (3.3-5.1); Sodium 139 mmol/L (135-145); Total Protein 7.3 g/dL (6.5-8.0)
--- NOTE | 2023-11-01 08:14 | PC.NURSE ---
coming from home seeking detox. patient is jaundice and has been reporting vomit and stool with blood. vomiting today in ED with blood tinge. IV established, medicated per the MAR. patient calling out in room for her boyfriend, telling staff to let the dog out.
[2023-11-01 08:22] LABS: Ammonia 39 umol/L (13-55)
[2023-11-01] MEDS: PHENobarbitaL sodium 130 MG/ML IM ONCE 275 MG IM (08:30)
[2023-11-01 08:48] LABS: Lactic Acid 2.4 mmol/L (0.5-2.0)
--- NOTE | 2023-11-01 08:59 | PC.NURSE ---
obtained cultures and lactic, second IV in right AC - patient removed on own. oxygen dropping to 86% on room air, repositioned in the bed.
[2023-11-01] MEDS: cefTRIAXone sodium 2 GM in 0.9 % Sodium Chloride 50 ML IV (09:07)
--- NOTE | 2023-11-01 09:20 | PC.NURSE ---
second IV re-established, second liter of fluids and antibiotics infusing. per blood bank, second type obtained and sent.
--- NOTE | 2023-11-01 09:33 | PC.NURSE ---
off to ct scan at this time
[2023-11-01 10:30] LABS: Reflex Lactate? Lactic Acid Added
--- NOTE | 2023-11-01 10:48 | PC.NURSE ---
attempted to hang first unit of blood, found the first unit to be clotted. returned to blood bank. patient continues to rest quietly in room with even and unlabored respirations. blood found to be pooling in small amount in left side of mouth, not obstructing airway or causing any distress. provider at bedside to evaluate where the blood was coming from, unable to determine. suction at bedside as needed at this time. awaiting first unit of blood at this time.
[2023-11-01] MEDS: iohexoL 350 MG/ML 100 ML INFUS..BTL IV (11:11)
--- NOTE | 2023-11-01 11:25 | PC.NURSE ---
first unit of blood infusing at this time, patient continues to sleep. no obvious signs/symptoms of distress noted.
[2023-11-01 11:32] LABS: ~Lactic Acid-LAB USE ONLY 1.8 mmol/L (0.5-2.0)
--- NOTE | 2023-11-01 11:45 | P.HPHOSP_ITS ---
History of Present Illness Date of Service: 11/01/23 Attending physician on admission: Armani Browning Chief Complaint: Requesting detox Pt is a 38-year-old female with a PMH significant for?alcohol use disorder who presents to the ED requesting detox. Patient is resting comfortably in bed but somnolent and unarousable at time interview and examination and thus incapable of providing HPI which is instead obtained from chart and provider review. Patient with a long history of daily alcohol use, apparently presented to the ED reporting multiple recent episodes of hematemesis and dark-colored stools. Was requesting detox after a recent 10-day lagos. Last drink 6-7 hours before presenting to the ED. In the ED pt was noted to be emotionally labile and apparently hallucinating, calling out to people and pets that were not there. In the ED pt was tachycardic up to 99 and hypoxic as low 85 on RA. Labs were significant for leukocytosis 17.8, H&H 8.6/26.4, lactic acid 2.4 with repeat 1.8, total bilirubin 11.7, AST 217, ALT 39, alk-phos 240, and ethyl alcohol level of 440. Stool positive for occult blood. CT of chest showed atelectasis/consolidation in right lower lobe and subsegmental atelectasis in the left lower lobe. CT?of abdomen and pelvis found no evidence of active GI bleeding, but did show colitis proximal colon possibly secondary to liver disease, also possible diffuse wall thickening the stomach/gastritis. Additionally showed splenomegaly, varices, large amount of ascites, and enlarged and very heterogeneous liver, though focal liver lesion can not excluded. EKG demonstrated sinus rhythm with QTc 529 and T-wave inversions in leads III, V1, and V3 with no evidence of significant ST elevations or depressions. Pt was treated with Protonix, IVF, Mag sulfate, ondansetron, and ceftriaxone. Pt will be admitted to the hospital for treatment and further evaluation of acute blood loss anemia likely secondary to upper GI bleed in the setting of alcohol use disorder/alcoholic gastritis. Review of Systems 2 Review of Systems: Unable to obtain. [facility] Medical History SERAFIN (generalized anxiety disorder) Elevated blood pressure reading without diagnosis of hypertension Macrocytic anemia Obese Supraumbilical hernia Alcohol abuse Abnormal LFTs (liver function tests) Seasonal allergies Family History Family/Other Mental health disorder Father Osteomyelitis Anemia Myocardial infarction Mother Schizophrenia Brother Autistic disorder Other Bone cancer Non-Hodgkin lymphoma Skin cancer Surgical History History of hernia surgery H/O LEEP S/P laparoscopic cholecystectomy Social History Housing: House Alcohol intake: current Alcohol intake frequency: a few times a week Alcohol type: hard liquor Patient Tobacco Use Status: Former Tobacco user Tobacco use type: Cigarette e-Cigarette/Vaping Use: Never Used Second Hand Smoke Exposure: No Advance Directives: No Advance Directives Information Provided: No service: No Current occupational status: employed Current occupational exposures/hazards: No Meds Allergies Allergy/AdvReac Type Severity Reaction Status Date / Time chocolate AdvReac Hives Verified 11/01/23 07:20 Active Medications: Current Medications Pharmacy Consult (Consult Rx Etoh Phenob Im/Po) 1 each MISCELLANE ONCE PRN; Protocol PRN Reason: Consult order Phenobarbital (Phenobarbital 15 Mg Tablet) 45 mg PO BID HERMES; Protocol Stop: 11/03/23 09:01 Phenobarbital (Phenobarbital 30 Mg Tablet) 30 mg PO BID HERMES; Protocol Stop: 11/05/23 09:01 Phenobarbital (Phenobarbital 30 Mg Tablet) 30 mg PO Q24H HERMES; Protocol Stop: 11/06/23 21:01 Phenobarbital Sodium (Phenobarbital Sodium 130 Mg/Ml Vial Im Q3hx2) 205 mg IM Q3H HERMES; Protocol Stop: 11/01/23 14:01 Home Medications ?Medication ?Instructions ?Recorded ?Confirmed ?Last Taken ?Type Unobtainable 11/01/23 11/01/23 Unknown History Physical Exam 2 Vital Signs and Narrative: Vital Signs: Last Vital Signs Temp 98.0 F 11/01/23 11:34 Pulse 84 11/01/23 11:34 Resp 20 11/01/23 11:34 BP 119/67 11/01/23 11:34 Pulse Ox 94 11/01/23 10:11 O2 Del Method Nasal Cannula 11/01/23 10:11 O2 Flow Rate 3 11/01/23 10:11 BMI result Body Mass Index 24.1 Constitutional: Obtunded, not arousable, in no acute distress. Mental Status: Obtunded. Eyes: Pupils are equal, round, and reactive to light. Sclerae icteric. Ear, Nose, and Throat: Oropharynx clear, mucous membranes moist. Ears and nose without deformities. Trachea midline. Respiratory: Clear to auscultation bilaterally. No wheezing, rales, or rhonchi. Cardiovascular: S1, S2 regular. No murmurs, rubs, or gallops. Gastrointestinal: Abdomen soft, non-tender, distended with noted fluid shift. Normal bowel sounds. Neurologic: Cranial nerves II-XII are grossly intact bilaterally. No focal neurological deficits. Moves all extremities spontaneously. Skin: Warm, dry, yellow. Musculoskeletal: No cyanosis or clubbing. Extremities: No edema. Results Labs 11/01/23 07:35 11/01/23 07:35 Labs: Laboratory Results - last 24 hr 11/01/23 11/01/23 11/01/23 07:35 07:42 08:07 MCV 81.0 MCH 26.4 L MCHC 32.6 RDW 23.3 H Plt Count 220 MPV 8.8 L Immature Gran % (Auto) 1.0 H Neut % (Auto) 79.8 H Lymph % (Auto) 13.[address] [place] % (Auto) 3.9 Eos % (Auto) 1.0 Baso % (Auto) 0.5 Lymph # (Auto) 2.5 [place] # (Auto) 0.7 Eos # (Auto) 0.2 Baso # (Auto) 0.1 Abs Immat Gran (auto) 0.18 H Absolute Neuts (auto) 14.2 H Absolute Nucleated RBC 0.000 Nucleated RBC % (auto) 0.0 PT 18.4 H INR 1.5 H Anion Gap 17 Estim Creat Clear Calc 134.6 Estimated GFR > 60 Random Glucose 116 H Lactic Acid Lactic Acid F/U @ 2Hr Calcium 7.7 L D Total Bilirubin 11.7 H AST 217 H ALT 39 H Alkaline Phosphatase 240 H Ammonia 39 Total Protein 7.3 Albumin 3.0 L Lipase 67 Beta HCG, Quant < 2 Stool Occult Blood POSITIVE Ethyl Alcohol 440 H* Blood Type AB Positive Antibody Screen NEGATIVE Crossmatch See Detail 11/01/23 11/01/23 08:27 11:19 MCV MCH MCHC RDW Plt Count MPV Immature Gran % (Auto) Neut % (Auto) Lymph % (Auto) [place] % (Auto) Eos % (Auto) Baso % (Auto) Lymph # (Auto) [place] # (Auto) Eos # (Auto) Baso # (Auto) Abs Immat Gran (auto) Absolute Neuts (auto) Absolute Nucleated RBC Nucleated RBC % (auto) PT INR Anion Gap Estim Creat Clear Calc Estimated GFR Random Glucose Lactic Acid 2.4 H* Lactic Acid F/U @ 2Hr 1.8 Calcium Total Bilirubin AST ALT Alkaline Phosphatase Ammonia Total Protein Albumin Lipase Beta HCG, Quant Stool Occult Blood Ethyl Alcohol Blood Type Antibody Screen Crossmatch Assessment and Plan (1) Acute alcoholic hepatitis: Status: Acute (2) Alcohol use disorder: Status: Acute (3) Abdominal ascites: Status: Acute Plan Pt is a 38-year-old female with a PMH significant for?alcohol use disorder who presents to the ED for evaluation of hematemesis and dark-colored stools, and requesting detox after a recent 10-day lagos. Pt will be admitted to the hospital for treatment and further evaluation of acute blood loss anemia likely secondary to upper GI bleed in the setting of alcohol use disorder/alcoholic gastritis. Acute blood loss anemia Likely secondary to upper GI bleed in the setting of alcohol use disorder Pt with hematemesis, dark colored stools, stool positive for occult blood Patient received 1 unit of PRBCs in the ED NPO after midnight for likely EGD tomorrow GI consult Pneumatic boots for DVT prophylaxis Follow CBC Acute alcoholic hepatitis Transaminitis, CT showing hepatomegaly heterogeneous liver, large amount of ascites No indication of bacterial infection, no sepsis: Patient afebrile with no abdominal pain Tachycardia, leukocytosis, lactic acidosis secondary to acute alcoholic hepatitis, not sepsis Pt received IVF and started on broad-spectrum antibiotics in the ED Will empirically cover for SBP with ceftriaxone, started 11/01/2023 Will get paracentesis and check peritoneal cell count, , protein albumin, and culture with Gram stain Alcohol use disorder with likely imminent withdrawal Placed on phenobarb protocol in the ED, continue Daily multivitamin, folic acid, Thiamine 100 Protonix IV b.i.d. Follow lytes, Mag, BMP CIWA scale Addiction medicine consult Monitor on telemetry Acute hypoxic respiratory failure Patient satting at 85% on RA CT of chest showing atelectasis, ?of consolidation Likely secondary to alcoholic hepatitis Titrate supplemental O2 >92, wean as tolerated Full Code Attending:?Dr. Browning DVT Prophylaxis: Pneumatic boots due to acute blood loss anemia Pt will require a hospitalization of at least two nights for treatment of?acute blood loss anemia secondary to likely upper GI bleed in the setting of alcohol use disorder/alcoholic gastritis. Patient will require hospitalization for administration of phenobarb protocol, transfusion as necessary, close monitoring of labs, specialist consultation with Gastroenterology, and likely EGD for evaluation UGIB. Quality Stroke Does the patient have a stroke diagnosis?: No VTE Prior VTE?: No VTE Risk Level:: Medical - moderate - high VTE Device Contraindication: N/A - Device Ordered VTE Drug Contraindication: Treatment Not Indicated
--- NOTE | 2023-11-01 12:11 | PC.NURSE ---
holding 1100 pheno IM d/t patient's condition, patient is sleeping with even and unlabored respirations. blood continues to infuse with no signs/symptoms of distress
--- NOTE | 2023-11-01 12:15 | PHA.MEDREC ---
Pharmacy Consult ? Medication Reconciliation Pharmacy has completed the medication reconciliation. Patient has no pharmacy claim history, unarousable at bedside. Left message with patient's boyfriend Stephon ([phone]); will update if he calls back with any information.
[2023-11-01 12:21] LABS: Magnesium 2.1 mg/dL (1.6-2.6)
--- NOTE | 2023-11-01 13:18 | PC.NURSE ---
patient continues to rest quietly in room with even and unlabored respirations. blood transfusion infusing at this time w/out complications
--- NOTE | 2023-11-01 15:09 | MHC.CM.PN ---
This CM attempted to meet with pt, unable due to pt being asleep.
[2023-11-01] MEDS: Phytonadione (Vit K1) 10 MG in 0.9 % Sodium Chloride 50 ML 51 MG IV (15:28)
[2023-11-01] MEDS: 0.9 % Sodium Chloride Flush 3 ML SYRINGE IVFLUSH (15:31)
--- NOTE | 2023-11-01 15:32 | PC.NURSE ---
second unit of blood infusing. patient continues to sleep at this time, even and unlabored respirations. repositioning self in bed, call amin within reach.
--- NOTE | 2023-11-01 17:07 | PC.NURSE ---
complete bed change done, incontinent of urine. becoming more awake, answering questions with yes and no. able to see patient appears to have blood coming from laceration on her tongue. blood continues to infuse. call amin within reach.
--- NOTE | 2023-11-01 17:24 | PM.EVENT ---
Event Note Date of Service: 11/01/23 Event Note: GI Consult-Full note dictated-History via EMR and ER staff. Patient can not give a history due to EtOH intoxication and sedation. She does nod yes and no to some questions. Imp: EtOH-induced hepatitis with associated cirrhosis/portal HTN/ascites/melena. There has been no active bleeding in the ER. Her Ammonia level was normal. I suspect her GI bleeding is due to portal gastropathy and gastritis, as opposed to a variceal bleed. No clinical signs of SBP at this time. Rec: Supportive care for the time being. She is not a candidate for steroids for the EtOH-hepatitis due to the GI bleeding. Continue IV PPI. Diagnostic paracentesis to R/O SBP with cell count,Gram stain, C&S. Trial of IV Vitamin K for the coagulopathy. Followup labs in the AM, including a repeat ammonia level. I will hold off on an upper endoscopy for at least the time being given her poor mental status and no signs of active bleeding. D/W hospitalist staff. Thanks Time Spent With Patient Time: Total time managing care of this patient today ____ minutes.
[2023-11-01] MEDS: Pantoprazole Sodium 40 MG/10 ML VIAL IVPUSH (18:53)
--- NOTE | 2023-11-01 18:54 | PC.NURSE ---
patient awake, requesting ice water. incontinent of urine, cleaned and repositioined in bed.
--- NOTE | 2023-11-01 19:36 | PC.NURSE ---
this rn assumed care of pt, pt noted to be jaundice on head, chest, hands and arms. pt noted to have small bruising under the left eye and a scab on her lip, pt reports that is from her dog. pt currently on 3L nasal cannula sating 96-98%. pt sinus tachy on tele 104-110bpm. no acute distress noted, call amin within reach.
[2023-11-01] MEDS: PHENobarbitaL 15 MG TABLET 45 MG PO (20:57)
--- NOTE | 2023-11-01 20:59 | PC.NURSE ---
pt reporting headache and nausea, pt medicated per sep, tolerated well with water.
[2023-11-02] VITALS (9 sets, daily range): BP systolic 112–198; BP diastolic 68–107; PULSE 105–124; RESP 14–20; TEMP 36.9–38.3; O2SAT 94–100
[2023-11-02] MEDS: Acetaminophen 325 MG TABLET 650 MG PO ×2 (01:01→15:59)
[2023-11-02] MEDS: 0.9 % Sodium Chloride Flush 3 ML SYRINGE IVFLUSH ×4 (01:02→20:00)
--- NOTE | 2023-11-02 02:43 | PC.NURSE ---
pt found to be getting out of bed without assistance, pt high fall risk, pt placed in hospital bed, bed alarm on.pt reports lower back pain and given heat pack.
--- NOTE | 2023-11-02 03:12 | CONS_ITS ---
DATE OF SERVICE: 11/01/2023 REASON FOR CONSULTATION: Alcohol-induced liver disease with associated ascites, cirrhosis, and melena. HISTORY OF PRESENT ILLNESS: This has been obtained completely from the ER staff and hospital staff, as well as the medical record. She is currently unable to give a history due to her alcohol intoxication and sedation with phenobarbital. She does nod her head yes and no to some questions, but overall I cannot get any history from her. The patient is a 38-year-old female with an apparent longstanding history of alcohol abuse up until her arrival in the ER. She has been reported to have melena and perhaps some coffee-grounds emesis, although again history is quite limited. She has been noted to have jaundice, ascites, and elevated LFTs. Since arrival in the ER, she has had no sign of any active bleeding. She did receive some phenobarbital. MEDICATIONS: Medications at home are not available. Medications here in the hospital have included acetaminophen, Tessalon p.r.n., IV ceftriaxone, Colace p.r.n., folic acid, magnesium, multivitamin, Zofran p.r.n., IV pantoprazole, phenobarbital, and thiamine. PAST MEDICAL HISTORY: Alcohol abuse. Chronic liver disease in relation to alcohol. She had surgery in 2020 for repair of a supraumbilical hernia with mesh. She has had elevated LFTs in the past in relation to alcohol use. In addition to the hernia surgery, she has also had a previous cholecystectomy. I do not have records of any other medical issues at this time. SOCIAL HISTORY: Chronic alcohol abuse. FAMILY HISTORY: Not available. REVIEW OF SYSTEMS: Not obtainable. PHYSICAL EXAMINATION: GENERAL: The patient is a very lethargic female, but in no distress. She does acknowledge my questions and can nod her head yes or no in seeming appropriate fashion. She does have spider angiomata and jaundice. NECK: Supple. CARDIAC: Normal S1, S2. ABDOMEN: Soft, but distended with ascites. There is no focal mass rebound, guarding, nor tenderness. EXTREMITIES: Without edema. LABORATORY DATA: She had a CT scan of the abdomen and pelvis today showing hepatomegaly, but no evidence of any biliary obstruction. The portal and hepatic veins appear patent. There is splenomegaly and ascites. The pancreas appears normal. There is some nonspecific thickening of some portions of the GI tract with the colon and stomach, but nothing definitive. There was no evidence of any active GI bleeding on the CT with IV contrast. She also had a chest CT describing some atelectasis with consolidation in the right lower lobe and some in the left lower lobe. White blood cell count 17.8, hemoglobin 8.6 compared to 11.6 in 2021. MCV is 81, platelets 220,000. PT 18.4 with INR 1.5. Normal electrolytes. BUN 3, creatinine 0.5, total bilirubin 11.7, AST 217, ALT 39, alkaline phosphatase 240, albumin 3.0. Ammonia level 39. Lipase 67. test is negative. Stool was heme positive. Alcohol level was 440. IMPRESSION: The patient is a 38-year-old female with a longstanding history of alcohol abuse with subsequent significant liver disease, which appears to be consistent with cirrhosis as well as superimposed alcohol induced hepatitis. She appears to have multiple associated issues in relation to the chronic liver disease including ascites, portal hypertension, jaundice, and some GI bleeding. In regard to the GI bleeding, this does not appear to be active at the present time. Based on the history from the ER staff. I suspect this represents bleeding from either portal gastropathy and/or gastritis, as opposed to a variceal bleed given the clinical history. She does not appear to show any clinical signs of spontaneous bacterial peritonitis but does have an elevated white count, although that could also be from a pulmonary source. However, I would recommend obtaining an ultrasound-guided paracentesis as soon as that is available, so we can check cell counts, Gram stain, and culture on the ascites fluid. In the meantime, I would agree with the empiric use of antibiotics. I would give her a trial of vitamin K in regard to the elevated PT and INR. She is getting transfusions and I would then follow her blood counts after that. At this point, I will hold off an upper endoscopy for at least the time being given her poor mental status and no signs of any active bleeding. I would recheck labs in the morning including liver profile and ammonia level. In regard to the acute alcohol-induced hepatitis, she is not a candidate for steroids at this time given the associated GI bleeding. Thank you for the consultation. MD TONEY Nation/JOSUÉ / [id number] [facility] CENTERJane
[2023-11-02 04:45] LABS: Appearance Urine Turbid; Color Urine Brown; Glucose Urine UA Negative (Negative); Leukocyte Esterase Urine Moderate (2+) (Negative); Nitrite Urine Positive (Negative); PH 5.5 (5.0-9.0); Specific Gravity - Urine >= 1.030 (1.005-1.025); UMIC TRIGGER UACC YES; Urine Blood Moderate (2+) (Negative); Urine Ketones 80 mg/dL (Negative); Urine Protein 30 (1+) mg/dL (Neg-Trace)
[2023-11-02 04:50] LABS: Amphetamine Screen Urine Not Detected (Not Detect); Barbiturates, Urine POSITIVE (Not Detect); Benzodiazepines Screen Urine Not Detected (Not Detect); Cannabinoid Screen Urine Not Detected (Not Detect); Cocaine Screen Urine Not Detected (Not Detect); Fentanyl, urine Not Detected (Not Detect); Opiate Screen Urine Not Detected (Not Detect); Phencyclidine Screen Urine Not Detected (Not Detect)
[2023-11-02 04:53] LABS: Bacteria Urine None Seen (None Seen); Hyaline Casts Urine 0-2 /LPF (0-2); Other Crystals Urine Present; RBC Urine >20 /HPF (0-2); Squamous Epithelial Cell Urine >20 /HPF (0-2); UACC Culture Trigger YES; WBC Urine >50 /HPF (0-5)
[2023-11-02 05:59] LABS: Hematocrit 26.4 % (37.0-47.0); Mean Corpuscular HGB Conc 34.1 g/dl (31.0-35.0); Mean Corpuscular Hemoglobin 28.1 pg (27.0-33.0); Mean Corpuscular Volume 82.5 fL (80.0-98.0); Mean Platelet Volume 9.5 fL (9.4-12.3); NRBC Pct Auto 0.1 /100WBC (0.0-0.2); Platelet Count 104 X10*3/uL (160-400); Red Cell Distribution Width 22.3 % (11.0-16.0)
[2023-11-02 06:08] LABS: INTERNATIONAL NORM RATIO 1.5 (0.9-1.1); Prothrombin Time 18.2 SEC (11.1-13.3)
[2023-11-02 06:12] LABS: Ammonia 57 umol/L (13-55)
[2023-11-02 06:21] LABS: Alanine Aminotransferase 37 U/L (0-31); Albumin Level 2.8 g/dL (3.5-5.0); Alkaline Phosphatase 209 U/L (39-117); Anion Gap 17 (12-20); Aspartate Amino Transferase 200 U/L (5-31); Bilirubin Direct 14.2 mg/dL (0.0-0.5); Bilirubin Total 19.7 mg/dL (0.0-1.0); Blood Urea Nitrogen 7 mg/dL (9-16); Calcium 7.3 mg/dL (8.4-10.2); Carbon Dioxide 19 mmol/L (22-29); Chloride 103 mmol/L (96-108); Creatinine Clr Calc Pharmacy 126.9; Estimated Glomerular Filt Rate > 60; Glucose Random 89 mg/dL (60-115); Magnesium 1.9 mg/dL (1.6-2.6); Potassium 3.9 mmol/L (3.3-5.1); Sodium 135 mmol/L (135-145)
--- NOTE | 2023-11-02 06:37 | PM.EVENT ---
Event Note Date of Service: 11/02/23 Event Note: Patient febrile 101, meets sepsis. Abx, lactic acid, fluids and blood culture Time Spent With Patient Time: Total time managing care of this patient today ____ minutes.
[2023-11-02] MEDS: Acetaminophen 1,000 MG/100 ML PIGGYBACK 400 MG IV (06:44)
[2023-11-02] MEDS: Pantoprazole Sodium 40 MG/10 ML VIAL IVPUSH ×2 (06:44→16:01)
--- NOTE | 2023-11-02 06:47 | PC.NURSE ---
provider aware of pt temperature, tylenol infusion begun.
[2023-11-02 07:19] LABS: Lactic Acid 1.1 mmol/L (0.5-2.0)
[2023-11-02] MEDS: PHENobarbitaL 15 MG TABLET 45 MG PO ×2 (08:05→20:00)
[2023-11-02] MEDS: Folic Acid 1 MG TABLET PO (08:05)
[2023-11-02] MEDS: Albumin Human 25 % 100 ML 133.33 ML IV ×2 (08:05→10:31)
[2023-11-02] MEDS: Multivitamin TABLET 1 TAB PO (08:05)
[2023-11-02] MEDS: Thiamine HCL 100 MG TABLET PO (08:06)
[2023-11-02] MEDS: LORazepam 2 MG/ML VIAL IVPUSH (08:40)
[2023-11-02] MEDS: cefTRIAXone sodium 1 GM in 0.9 % Sodium Chloride 50 ML IV (08:41)
--- NOTE | 2023-11-02 08:55 | PC.NURSE ---
LATE ENTRY: PT HAD ONE MINUTE SEIZURE, TEETH CLENCHED THAT RESULTED IN BITING HER LIPS AND TONGUE. SUCTIONED SMALL AMOUNT OF BLOOD TINGED SPUTUM, O2 APPLIED. SEIZURE PADS APPLIED. DR. PERKINS CALLED TO HER BEDSIDE. PT CURRENTLY RESTING QUIETLY, NO APPARENT DISTRESS. MEDS GIVEN ORDERED. VSS.
--- NOTE | 2023-11-02 09:58 | P.PNIM_ITS ---
Subjective Subjective Date of Service: 11/02/23 Interval History: witnessed seizure in ED aborted with 2mg ativan, + tongue biting Physical Exam 2 Vital Signs: Vital Signs: Last Vital Signs Temp 101.0 F H 11/02/23 06:35 Pulse 124 H 11/02/23 08:35 Resp 20 11/02/23 06:35 BP 145/85 H 11/02/23 08:35 Pulse Ox 100 11/02/23 08:35 O2 Del Method Room Air 11/02/23 06:35 O2 Flow Rate 3 11/01/23 19:34 BMI result Body Mass Index 24.1 obtunded, jaundiced, ill appearing, protecting airway, abd distended Objective Data Active Medications Acetaminophen (Acetaminophen 325 Mg Tablet) 650 mg PO Q6H PRN PRN Reason: Pain, Mild (Pain Scale 1-3) Last Admin: 11/02/23 01:01 Dose: 650 mg Documented By: SERRANX Benzonatate (Benzonatate 100 Mg Capsule) 100 mg PO TID PRN PRN Reason: Cough Docusate Sodium (Docusate Sodium 100 Mg Capsule) 100 mg PO DAILY PRN PRN Reason: Constipation Folic Acid (Folic Acid 1 Mg Tablet) 1 mg PO DAILY [facility] Stop: 11/04/23 12:44 Last Admin: 11/02/23 08:05 Dose: 1 mg Documented By: RERE Ceftriaxone Sodium 1 gm/ (Sodium Chloride) 50 mls @ 100 mls/hr IV Q24H [facility] Last Infusion: 11/02/23 09:17 Dose: Infused Documented By: RERE Multivitamins/Vitamin C (Multivitamin Tablet) 1 tab PO DAILY [facility] Stop: 11/04/23 12:44 Last Admin: 11/02/23 08:05 Dose: 1 tab Documented By: RERE Ondansetron HCl (Ondansetron Hcl 4 Mg/2 Ml Vial) 4 mg IVPUSH Q8H PRN PRN Reason: Nausea and Vomiting Pantoprazole Sodium (Pantoprazole Sodium 40 Mg/10 Ml Vial) 40 mg IVPUSH BID@0630,1630 [facility] Last Admin: 11/02/23 06:44 Dose: 40 mg Documented By: LOW Pharmacy Consult (Consult Rx Etoh Phenob Im/Po) 1 each MISCELLANE ONCE PRN; Protocol PRN Reason: Consult order Phenobarbital (Phenobarbital 15 Mg Tablet) 45 mg PO BID [facility]; Protocol Stop: 11/03/23 09:01 Last Admin: 11/02/23 08:05 Dose: 45 mg Documented By: RERE Phenobarbital (Phenobarbital 30 Mg Tablet) 30 mg PO BID [facility]; Protocol Stop: 11/05/23 09:01 Phenobarbital (Phenobarbital 30 Mg Tablet) 30 mg PO Q24H [facility]; Protocol Stop: 11/06/23 21:01 Sodium Chloride (0.9 % Sodium Chloride Flush 3 Ml Syringe) 3 ml IVFLUSH QSHIFT [facility] Last Admin: 11/02/23 08:07 Dose: 3 ml Documented By: RERE Thiamine HCl (Thiamine Hcl 100 Mg Tablet) 100 mg PO DAILY [facility] Stop: 11/04/23 12:44 Last Admin: 11/02/23 08:06 Dose: 100 mg Documented By: RERE Labs 11/02/23 05:44 11/02/23 05:44 Labs: Laboratory Results - last 24 hr 11/01/23 11/01/23 11/01/23 07:35 07:42 11:19 MCV MCH MCHC RDW Plt Count MPV Absolute Nucleated RBC Nucleated RBC % (auto) PT INR Anion Gap Estim Creat Clear Calc Estimated GFR Random Glucose Lactic Acid Lactic Acid F/U @ 2Hr 1.8 Calcium Magnesium 2.1 Total Bilirubin Direct Bilirubin AST ALT Alkaline Phosphatase Ammonia Total Protein Albumin Urine Color Urine Appearance Urine pH Ur Specific [place] Urine Protein Urine Glucose (UA) Urine Ketones Urine Blood Urine Nitrite Ur Leukocyte Esterase Urine RBC Urine WBC Ur Squamous Epith Cells Other Crystals Urine Bacteria Hyaline Casts Urine Opiates Screen Urine Fentanyl Screen Ur Barbiturates Screen Ur Phencyclidine Scrn Ur Amphetamines Screen U Benzodiazepines Scrn Urine Cocaine Screen U Marijuana (THC) Screen Blood Type AB Positive Antibody Screen NEGATIVE Crossmatch See Detail 11/02/23 11/02/23 11/02/23 04:34 05:44 06:50 MCV 82.5 MCH 28.1 MCHC 34.1 RDW 22.3 H Plt Count 104 L D MPV 9.5 Absolute Nucleated RBC 0.020 H Nucleated RBC % (auto) 0.1 PT 18.2 H INR 1.5 H Anion Gap 17 Estim Creat Clear Calc 126.9 Estimated GFR > 60 Random Glucose 89 Lactic Acid 1.1 Lactic Acid F/U @ 2Hr Calcium 7.3 L Magnesium 1.9 Total Bilirubin 19.7 H Direct Bilirubin 14.2 H AST 200 H ALT 37 H Alkaline Phosphatase 209 H Ammonia 57 H Total Protein 7.0 Albumin 2.8 L Urine Color Brown A Urine Appearance Turbid Urine pH 5.5 Ur Specific [place] >= 1.030 H Urine Protein 30 (1+) H Urine Glucose (UA) Negative Urine Ketones 80 Urine Blood Moderate (2+) H Urine Nitrite Positive H Ur Leukocyte Esterase Moderate (2+) H Urine RBC >20 H Urine WBC >50 H Ur Squamous Epith Cells >20 Other Crystals Present Urine Bacteria None Seen Hyaline Casts 0-2 Urine Opiates Screen Not Detected Urine Fentanyl Screen Not Detected Ur Barbiturates Screen POSITIVE H Ur Phencyclidine Scrn Not Detected Ur Amphetamines Screen Not Detected U Benzodiazepines Scrn Not Detected Urine Cocaine Screen Not Detected U Marijuana (THC) Screen Not Detected Blood Type Antibody Screen Crossmatch Microbiology Microbiology Results: Microbiology 11/01/23 07:35 Blood Culture - Preliminary Blood - Venous No growth after 24 hours. Assessment and Plan (1) Abdominal ascites: Status: Acute Plan 38F PMH etoh dependence, presented requesting detox, found to have acute hepatitis, further complicated by withdrawal seizure and melena Alcohol dependence with acute alcoholic hepatitis complicated by withdrawal and withdrawal seizure Continue phenobarbital GI eval Monitor LFTs Monitor CIWA Encouraged protein intake Sepsis Question SBP Bilirubin and thrombocytopenia due to liver failure not sepsis Follow-up cultures, continue ceftriaxone Plan for paracentesis tomorrow Acute blood loss anemia IV PPI Monitor GI eval DVT prophylaxis mechanical due to GI bleed Full code reason for continued hospitalization: Obtunded Quality Stroke Does the patient have a stroke diagnosis?: No VTE Prior VTE?: No VTE Risk Level:: Medical - moderate - high VTE Device Contraindication: N/A - Device Ordered VTE Drug Contraindication: Treatment Not Indicated
--- NOTE | 2023-11-02 10:09 | MHC.CM.PN ---
PT IS OBTUNDED S/P 2 SEIZURES IN ED. CM IS UNABLE TO ASSESS AT THIS TIME. CM WILL CONTINUE TO FOLLOW FOR WHEN PT IS MORE ALERT AND ABLE TO PARTICIPATE.
--- NOTE | 2023-11-02 16:35 | P.PNGI_ITS ---
Subjective Subjective Date of Service: 11/02/23 Interval History: History from patient, RN, and EMR More alert today. Denies N/V/diarrhea. No sign of bleeding. Denies abdominal pain. Feels tired. Oriented to person, place, month, and year Critical Care Time (minutes): 0 Physical Exam 2 Vital Signs: Vital Signs: Last Vital Signs Temp 98.6 F 11/02/23 15:07 Pulse 120 H 11/02/23 15:07 Resp 20 11/02/23 15:07 BP 119/72 11/02/23 15:07 Pulse Ox 100 11/02/23 15:07 O2 Del Method Oxymask 11/02/23 15:07 O2 Flow Rate 10 11/02/23 15:07 BMI result Body Mass Index 24.1 Const: General: cooperative, comfortable, no acute distress, alert, awake and ill appearing Nutritional Appearance: malnourished O rientation/consciousness: oriented to person, oriented to place, oriented to time and patient oriented x3 HEENT: Other: Icteric sclerae GI: Other: Abd- Distended with ascites, but soft, NT, +BS Skin: Other: Jaundice, +spider angiomata Neuro: Other: Positive tremor vs. [place]ix[place] General: oriented to person, oriented to place, oriented to time and patient oriented x3 Objective Data Labs 11/02/23 05:44 11/02/23 05:44 Labs: Laboratory Results - last 24 hr 11/01/23 11/02/23 11/02/23 07:42 04:34 05:44 WBC 14.0 H RBC 3.20 L Hgb 9.0 L Hct 26.4 L MCV 82.5 MCH 28.1 MCHC 34.1 RDW 22.3 H Plt Count 104 L D MPV 9.5 Absolute Nucleated RBC 0.020 H Nucleated RBC % (auto) 0.1 PT 18.2 H INR 1.5 H Sodium 135 Potassium 3.9 Chloride 103 Carbon Dioxide 19 L Anion Gap 17 BUN 7 L Creatinine 0.53 Estim Creat Clear Calc 126.9 Estimated GFR > 60 Random Glucose 89 Lactic Acid Calcium 7.3 L Magnesium 1.9 Total Bilirubin 19.7 H Direct Bilirubin 14.2 H AST 200 H ALT 37 H Alkaline Phosphatase 209 H Ammonia 57 H Total Protein 7.0 Albumin 2.8 L Urine Color Brown A Urine Appearance Turbid Urine pH 5.5 Ur Specific [place] >= 1.030 H Urine Protein 30 (1+) H Urine Glucose (UA) Negative Urine Ketones 80 Urine Blood Moderate (2+) H Urine Nitrite Positive H Ur Leukocyte Esterase Moderate (2+) H Urine RBC >20 H Urine WBC >50 H Ur Squamous Epith Cells >20 Other Crystals Present Urine Bacteria None Seen Hyaline Casts 0-2 Urine Opiates Screen Not Detected Urine Fentanyl Screen Not Detected Ur Barbiturates Screen POSITIVE H Ur Phencyclidine Scrn Not Detected Ur Amphetamines Screen Not Detected U Benzodiazepines Scrn Not Detected Urine Cocaine Screen Not Detected U Marijuana (THC) Screen Not Detected Crossmatch See Detail 11/02/23 06:50 WBC RBC Hgb Hct MCV MCH MCHC RDW Plt Count MPV Absolute Nucleated RBC Nucleated RBC % (auto) PT INR Sodium Potassium Chloride Carbon Dioxide Anion Gap BUN Creatinine Estim Creat Clear Calc Estimated GFR Random Glucose Lactic Acid 1.1 Calcium Magnesium Total Bilirubin Direct Bilirubin AST ALT Alkaline Phosphatase Ammonia Total Protein Albumin Urine Color Urine Appearance Urine pH Ur Specific [place] Urine Protein Urine Glucose (UA) Urine Ketones Urine Blood Urine Nitrite Ur Leukocyte Esterase Urine RBC Urine WBC Ur Squamous Epith Cells Other Crystals Urine Bacteria Hyaline Casts Urine Opiates Screen Urine Fentanyl Screen Ur Barbiturates Screen Ur Phencyclidine Scrn Ur Amphetamines Screen U Benzodiazepines Scrn Urine Cocaine Screen U Marijuana (THC) Screen Crossmatch Microbiology Microbiology Results: Microbiology 11/01/23 08:27 Blood - Venous Blood Culture - Preliminary No growth after 24 hours. 11/01/23 07:35 Blood - Venous Blood Culture - Preliminary No growth after 24 hours. Procedures Date of Service Date of Service: 11/02/23 Progress Note: A&P Assessment and plan (1) Acute alcoholic hepatitis: Status: Acute (2) UGIB (upper gastrointestinal bleed): Status: Acute (3) Alcoholic cirrhosis of liver with ascites: Status: Acute Plan Imp: Stable overnight without any active bleeding. She did apparently have a withdrawal seizure. No definitive hepatic encephalopathy. Ascites present but no clinical signs of SBP. She has advanced cirrhosis and alcohol-induced hepatitis with worsening LFT's. Rec: Follow Liver function closely. U/S paracentesis to check cell count and R/O SBP 11/02. I advanced her diet now but made her NPO for U/S tomorrow. Would D/C antibiotics if cell count is negative. Would add low dose of Aldactone 50mg QD for ascites as needed, but increase if need be while following her chemistries and renal function. Continue PPI. I will hold off on an EGD for now given her other issues. If no further bleeding and ascites is negative for SBP, I would start prednisolone 40mg QD if the LFT's/PT/INR worsen with tomorrow's labs. Patient needs to maximize nutrition and avoid EtOH termite control servicer. D/W her in detail. Thanks Time Spent With Patient Time: Total time managing care of this patient today ____ minutes. Quality Stroke Does the patient have a stroke diagnosis?: No VTE Prior VTE?: No VTE Risk Level:: Medical - moderate - high VTE Device Contraindication: N/A - Device Ordered VTE Drug Contraindication: Treatment Not Indicated
--- NOTE | 2023-11-02 17:19 | PM.DS ---
DS: Providers Provider Date of Service: 11/02/23 Date of admission: 11/01/23 12:32 Primary care physician: [facility] Consults: 11/01/23 12:38 Consult to Gastroenterology Routine Consulting Provider: Elías Rivera Reason for consultation: Likely UGIB secondary to alcohol use 11/01/23 13:45 Addiction Medicine Routine Consulting Provider: Addiction Covering Reason for consultation: Alcohol use disorder Has provider been notified: Yes DS: Diagnosis Discharge Diagnosis (1) Acute alcoholic hepatitis: Status: Acute (2) UGIB (upper gastrointestinal bleed): Status: Acute (3) Alcoholic cirrhosis of liver with ascites: Status: Acute DS: Summary Hospital Course Hospital Course: from initial hpi: 38-year-old female with a PMH significant for alcohol use disorder who presents to the ED requesting detox. Patient is resting comfortably in bed but somnolent and unarousable at time interview and examination and thus incapable of providing HPI which is instead obtained from chart and provider review. Patient with a long history of daily alcohol use, apparently presented to the ED reporting multiple recent episodes of hematemesis and dark-colored stools. Was requesting detox after a recent 10-day lagos. Last drink 6-7 hours before presenting to the ED. In the ED pt was noted to be emotionally labile and apparently hallucinating, calling out to people and pets that were not there. In the ED pt was tachycardic up to 99 and hypoxic as low 85 on RA. Labs were significant for leukocytosis 17.8, H&H 8.6/26.4, lactic acid 2.4 with repeat 1.8, total bilirubin 11.7, AST 217, ALT 39, alk-phos 240, and ethyl alcohol level of 440. Stool positive for occult blood. CT of chest showed atelectasis/consolidation in right lower lobe and subsegmental atelectasis in the left lower lobe. CT of abdomen and pelvis found no evidence of active GI bleeding, but did show colitis proximal colon possibly secondary to liver disease, also possible diffuse wall thickening the stomach/gastritis. Additionally showed splenomegaly, varices, large amount of ascites, and enlarged and very heterogeneous liver, though focal liver lesion can not excluded. EKG demonstrated sinus rhythm with QTc 529 and T-wave inversions in leads III, V1, and V3 with no evidence of significant ST elevations or depressions. Pt was treated with Protonix, IVF, Mag sulfate, ondansetron, and ceftriaxone. Pt will be admitted to the hospital for treatment and further evaluation of acute blood loss anemia likely secondary to upper GI bleed in the setting of alcohol use disorder/alcoholic gastritis. hospital course: Patient was admitted for alcohol dependence with acute alcoholic hepatitis complicated by withdrawal. Patient was treated with phenobarbital protocol. Around 09:00 on 11/02/23 patient had witnessed seizure, aborted with 2mg iv ativan. patient was post ictal for a couple hours. afterwards patient was alert and oriented, but noted to be unable to open right eye. CT head was done which revealed right 1.5cm SDH with 0.6cm right to left shift. case discussed with neurosurgery at [facility] [place], given 1gm keppra, HOB>45 degrees, q2h neuro checks, and plan for transfer. course also complicated by sepsis with fever 101. no obvious source, possible SBP, but was unable to get paracentesis yet. treated empirically with rocephin. also noted to have melena, treated with iv ppi. hgb stable. Time Attestation Discharge Coordination Time (in mins): 35 Quality: Safe Use of Opioids Does Pt have an Active Cancer Diagnosis on the Problem List?: No Quality: Stroke Does the patient have a stroke diagnosis?: No Physical Exam Vital Signs: Vital Signs: Last Vital Signs Temp 98.6 F 11/02/23 15:07 Pulse 120 H 11/02/23 15:07 Resp 20 11/02/23 15:07 BP 119/72 11/02/23 15:07 Pulse Ox 100 11/02/23 15:07 O2 Del Method Oxymask 11/02/23 15:07 O2 Flow Rate 10 11/02/23 15:07 BMI result Body Mass Index 24.1 alert, oriented times 3, jaundiced neuro intact except unable to open right eye no obvious trauma abd distended, non tender DS: Data Data Completed and Pending Labs on day of discharge: Laboratory Results - last 24 hr 11/01/23 11/02/23 11/02/23 07:42 04:34 05:44 WBC 14.0 H RBC 3.20 L Hgb 9.0 L Hct 26.4 L MCV 82.5 MCH 28.1 MCHC 34.1 RDW 22.3 H Plt Count 104 L D MPV 9.5 Absolute Nucleated RBC 0.020 H Nucleated RBC % (auto) 0.1 PT 18.2 H INR 1.5 H Sodium 135 Potassium 3.9 Chloride 103 Carbon Dioxide 19 L Anion Gap 17 BUN 7 L Creatinine 0.53 Estim Creat Clear Calc 126.9 Estimated GFR > 60 Random Glucose 89 Lactic Acid Calcium 7.3 L Magnesium 1.9 Total Bilirubin 19.7 H Direct Bilirubin 14.2 H AST 200 H ALT 37 H Alkaline Phosphatase 209 H Ammonia 57 H Total Protein 7.0 Albumin 2.8 L Urine Color Brown A Urine Appearance Turbid Urine pH 5.5 Ur Specific [place] >= 1.030 H Urine Protein 30 (1+) H Urine Glucose (UA) Negative Urine Ketones 80 Urine Blood Moderate (2+) H Urine Nitrite Positive H Ur Leukocyte Esterase Moderate (2+) H Urine RBC >20 H Urine WBC >50 H Ur Squamous Epith Cells >20 Other Crystals Present Urine Bacteria None Seen Hyaline Casts 0-2 Urine Opiates Screen Not Detected Urine Fentanyl Screen Not Detected Ur Barbiturates Screen POSITIVE H Ur Phencyclidine Scrn Not Detected Ur Amphetamines Screen Not Detected U Benzodiazepines Scrn Not Detected Urine Cocaine Screen Not Detected U Marijuana (THC) Screen Not Detected Crossmatch See Detail 11/02/23 06:50 WBC RBC Hgb Hct MCV MCH MCHC RDW Plt Count MPV Absolute Nucleated RBC Nucleated RBC % (auto) PT INR Sodium Potassium Chloride Carbon Dioxide Anion Gap BUN Creatinine Estim Creat Clear Calc Estimated GFR Random Glucose Lactic Acid 1.1 Calcium Magnesium Total Bilirubin Direct Bilirubin AST ALT Alkaline Phosphatase Ammonia Total Protein Albumin Urine Color Urine Appearance Urine pH Ur Specific [place] Urine Protein Urine Glucose (UA) Urine Ketones Urine Blood Urine Nitrite Ur Leukocyte Esterase Urine RBC Urine WBC Ur Squamous Epith Cells Other Crystals Urine Bacteria Hyaline Casts Urine Opiates Screen Urine Fentanyl Screen Ur Barbiturates Screen Ur Phencyclidine Scrn Ur Amphetamines Screen U Benzodiazepines Scrn Urine Cocaine Screen U Marijuana (THC) Screen Crossmatch Preliminary micro results at discharge 11/01/23 08:27 Blood Culture - Preliminary Blood - Venous No growth after 24 hours. 11/01/23 07:35 Blood Culture - Preliminary Blood - Venous No growth after 24 hours. Discharge Plan Discharge Anticipated Discharge Date/Time: 11/02/23 17:18 Patient Disposition: er Acute Care Hospital Discharge Diagnosis: acute subdural hematoma, alcoholic hepatitis Referrals: [facility] [Primary Care Provider] - 1 Week Discharge Medications: New pantoprazole [Protonix] 40 mg Recon Soln 40 mg IVPUSH BID@0630,1630 Qty: 0 0RF ceftriaxone 1 gram Recon Soln 1 g IV Q24H Qty: 0 0RF phenobarbital 15 mg Tablet 45 mg PO BID Qty: 0 0RF phenobarbital 30 mg Tablet 30 mg PO BID Qty: 0 0RF phenobarbital 30 mg Tablet 30 mg PO Q24H Qty: 0 0RF levetiracetam [Keppra] 750 mg tablet 750 mg PO BID Qty: 60 0RF Discharge Orders: Discharge Order (Routine); Ordered 11/02/23 Ordered By: Armani Browning Diet: Advance to usual diet Activity on Discharge: As tolerated Stand Alone Forms: Patient Portal Discharge page Print Language: Mongolian Care Plan Goals: recovery Health Concerns: alcholic hepatitis, subdural hematoma Plan of Treatment: transfer to [facility] [place] for neurosurgery eval Assessment: see above
[2023-11-02] MEDS: levETIRAcetam in NaCl (iso-os) 1,000 MG/100 ML PIGGYBACK 400 MG IV (18:39)
[2023-11-02 20:12] LABS: COVID-19 Test Negative (Negative); IDNOW Serial# 08D9AD1C
--- NOTE | 2023-11-02 20:58 | PC.NURSE ---
Assumed care of patient at 19:15 this evening. Plans for patient to go to [facility] this evening as pt has active SDH per chart review. This display card writer attempted to call nurse to nurse report to [facility]; RN states unable to take report at this time. This display card writer advised will attempt to call back in fifteen minutes to give report. Nursing major appliance assembly supervisor notified.
--- NOTE | 2023-11-02 22:02 | PC.NURSE ---
Report called to SHARONA Chacon at [facility] at 21:21. Pt A&Ox4, transferred in stable condition with all belongings via ACLS at 21:45. Please see shift, neuro, and CIWA assessents and MAR for full details.
[2023-11-03 08:45] LABS: HBS Num1 383.34 mIU/mL (0-7.99); HBsAGNum1 0.38 S/CO (0.00-0.99); Hepatitis A Antibody IgM 0.28 Index (0-0.79); Hepatitis B Core Antibody Nonreactive (Nonreactive); Hepatitis B Surface Antigen Negative (Negative); ~HepC Num1 0.38 S/CO (0.00-0.79); ~Hepatitis A Antibody IgM Nonreactive (Nonreactive); ~Hepatitis B Surface Antibody REACTIVE (Nonreactive); ~Hepatitis C Antibody Nonreactive (Nonreactive)
== END 2023-11-02 21:45 | disposition short-term general hospital (02) | DRG 280 ==
LOC: HO.ED 07:59 → HO.EDOVER 12:41 → HO.IMC 11-02 07:15
PROVIDERS: Internal Medicine; Student in an Organized Health Care Education/Training Program; Admitting Provider Student in an Organized Health Care Education/Training Program; Emergency Provider Student in an Organized Health Care Education/Training Program; Visit Provider Internal Medicine
DX: K70.11 Alcoholic hepatitis with ascites (principal); K70.31 Alcoholic cirrhosis of liver with ascites; J96.01 Acute respiratory failure with hypoxia; A41.9 Sepsis, unspecified organism; I62.01 Nontraumatic acute subdural hemorrhage; K65.2 Spontaneous bacterial peritonitis; K29.21 Alcoholic gastritis with bleeding; K76.6 Portal hypertension; R56.9 Unspecified convulsions; D69.59 Other secondary thrombocytopenia; D62 Acute posthemorrhagic anemia; F10.239 Alcohol dependence with withdrawal, unspecified; R29.810 Facial weakness; K31.89 Other diseases of stomach and duodenum; E83.42 Hypomagnesemia; F41.1 Generalized anxiety disorder; Y90.8 Blood alcohol level of 240 mg/100 ml or more; Z20.822 Contact with and (suspected) exposure to COVID-19
CPT/HCPCS: 36415; 70450; 71260; 74178; 80048; 80053; 80076; 80307; 81001; 82140; 82272; 83605; 83690; 83735; 84702; 85025; 85027; 85610; 86704; 86706; 86709; 86803; 86850; 86900; 86901; 86920; 86923; 87040; 87086; 87340; 87635; 92950; 93005; 99285; C9113; J0131; J0696; J1953; J2060; J2405; J2560; J3430; J3475; P9016; P9047; Q9967

== ENCOUNTER → 2023-11-01 07:13 | Outpatient (BNV) | payer MEDICAID, SELFPAY | PROVIDERS: Emergency Provider Student in an Organized Health Care Education/Training Program; Visit Provider Internal Medicine Cardiovascular Disease | DX: I45.81 Long QT syndrome (principal) | CPT/HCPCS: 93010 ==

== ENCOUNTER → 2023-11-01 12:32 | Outpatient (BNV) | payer MEDICAID, SELFPAY | PROVIDERS: Admitting Provider Student in an Organized Health Care Education/Training Program; Emergency Provider Student in an Organized Health Care Education/Training Program; Visit Provider Student in an Organized Health Care Education/Training Program | DX: K70.10 Alcoholic hepatitis without ascites (principal); K92.2 Gastrointestinal hemorrhage, unspecified; K70.31 Alcoholic cirrhosis of liver with ascites; R18.8 Other ascites | CPT/HCPCS: 99223; 99239; 99499 ==